=== PATIENT | male | born 1980 | race American Indian/Alaskan Native ===

== ENCOUNTER 2019-12-04 18:53 | Emergency (ER) | payer SELFPAY ==
--- NOTE | 2019-12-04 19:22 | Emergency Department Report ---
ED General Adult HPI - General Chief complaint: Head Injury Stated complaint: AMS Time Seen by Provider: 12/04/19 19:13 Source: patient, EMS Mode of arrival: Stretcher Limitations: Altered Mental Status - History of Present Illness Initial comments: The patient presents to the emergency department via EMS status post a ground- level fall. Patient states that he slipped on his patio due to the type of shoes he is wearing. The patient does admit to being unconscious for unknown period of time. The patient is able to answer questions pertaining to where he is located, the day of the week. The date, and the current president. Patient denies a headache or neck pain. -: Sudden Severity scale (0 -10): 0 Consistency: now resolved Improves with: none Worsens with: none Associated Symptoms: denies other symptoms Treatments Prior to Arrival: none - Related Data Allergies Allergy/AdvReac Type Severity Reaction Status Date / Time No Known Allergies Allergy Unverified 12/04/19 19:07 ED Review of Systems ROS: Stated complaint: AMS Other details as noted in HPI Comment: All other systems reviewed and negative Constitutional: denies: chills, fever Eyes: denies: eye pain, eye discharge, vision change ENT: denies: ear pain, throat pain Respiratory: denies: cough, shortness of breath, wheezing Cardiovascular: denies: chest pain, palpitations Endocrine: no symptoms reported Gastrointestinal: denies: abdominal pain, nausea, diarrhea Genitourinary: denies: urgency, dysuria Musculoskeletal: denies: back pain, joint swelling, arthralgia Skin: denies: rash, lesions Neurological: denies: headache, weakness, paresthesias Psychiatric: denies: anxiety, depression Hematological/Lymphatic: denies: easy bleeding, easy bruising ED Past Medical Hx - Past Medical History Previous Medical History?: No ED Physical Exam - General Limitations: Altered Mental Status General appearance: alert, in no apparent distress - Head Head exam: Present: atraumatic, normocephalic - Eye Eye exam: Present: normal appearance, PERRL, EOMI - ENT ENT exam: Present: mucous membranes moist - Neck Neck exam: Present: normal inspection - Respiratory Respiratory exam: Present: normal lung sounds bilaterally. Absent: respiratory distress - Cardiovascular Cardiovascular Exam: Present: regular rate, normal rhythm. Absent: systolic murmur, diastolic murmur, rubs, gallop - GI/Abdominal GI/Abdominal exam: Present: soft, normal bowel sounds. Absent: distended, tenderness - Rectal Rectal exam: Present: deferred - Extremities Exam Extremities exam: Present: normal inspection - Back Exam Back exam: Present: normal inspection - Neurological Exam Neurological exam: Present: alert, oriented X3, CN II-XII intact. Absent: motor sensory deficit - Psychiatric Psychiatric exam: Present: normal affect, normal mood - Skin Skin exam: Present: warm, dry, intact, normal color. Absent: rash ED Medical Decision Making - Medical Decision Making The patient endorses having an unknown time of loss of consciousness due to him falling hitting his head. It was discussed with the patient that I would like to get a CT of his head and cervical spine for evaluation of further injury such as a cervical fracture or intracranial bleed. Patient states he was not interested in getting any imaging and would like to go home. I discussed with him in detail that a cervical fracture can lead to permanent paralysis or as well as a bleed of the intracranial aspect could lead to permanent disability and . The patient states he understood this and said he had no interest in getting any test done and would like to go home. The patient did sign AGAINST MEDICAL ADVICE paperwork. Critical care attestation.: If time is entered above; I have spent that time in minutes in the direct care of this critically ill patient, excluding procedure time. ED Disposition Clinical Impression: Closed head injury Disposition: [id number]-07 LEFT AGAINST MED ADVICE Is pt being admited?: No Does the pt Need Aspirin: No Condition: Stable Instructions: Minor Head Injury (ED) Additional Instructions: return if worse As discussed in detail there is concerned that she possibly can have a intracranial head injury due to you falling and hitting her head and having a unknown time of loss of consciousness. Explained to you in detail that there could be concern for intracranial bleed which you state that you understand but she still want to go home. I discussed with you that this can lead to permanent injury or and you stated that she would take her chances. Referrals: [facility] [Provider Group] - 3-5 Days [facility] [Provider Group] - 3-5 Days Forms: AMA Form Time of Disposition: 19:20
== END 2019-12-04 19:26 | disposition left against medical advice (07) ==
LOC: ED 18:53
DX: R41.82 Altered mental status, unspecified (principal); Z53.21 Procedure and treatment not carried out due to patient leaving prior to being seen by health care provider

== ENCOUNTER 2019-12-13 14:39 | Emergency (ER) | payer SELFPAY ==
[2019-12-13 14:56] VITALS: BP 157/84
[2019-12-13 15:35] LABS: Hemoglobin 14.6 gm/dl (11.8-15.2); Mean Corpuscular HGB Conc 33 % (32-34); Mean Corpuscular Volume 92 fl (84-94); Platelet Count 219 K/mm3 (140-440); Red Blood Count 4.77 M/mm3 (3.65-5.03); Red Cell Distribution Width 15.3 % (13.2-15.2)
[2019-12-13 15:55] LABS: BUN/Creatinine Ratio 7; Blood Urea Nitrogen 8 mg/dL (9-20); Calcium 9.1 mg/dL (8.4-10.2); Hemolysis Index 19
--- NOTE | 2019-12-13 16:09 | Cat Scan Report ---
CT head/brain wo con INDICATION / CLINICAL INFORMATION: 38 years Male; head injury seizure. TECHNIQUE: Routine CT head without contrast. All CT scans at this location are performed using CT dos e reduction for ALARA by means of automated exposure control. COMPARISON: None. FINDINGS: BRAIN / INTRACRANIAL CONTENTS: Decreased attenuation seen peripherally in the left parietal lobe whic h could represent late subacute to chronic infarct. This finding could represent a seizure focus. Otherwise, no acute hemorrhage, mass effect, midline shift, hydrocephalus, or acute, large territori al infarct. No chronic infarct or atrophy appreciated. No significant white matter abnormality. CRANIOCERVICAL JUNCTION: No significant abnormality. ORBITS: No significant abnormality of visualized orbits. SINUSES / MASTOIDS: No significant abnormality in the visualized paranasal sinuses or mastoid air tad ls. ADDITIONAL FINDINGS: None. IMPRESSION: 1. 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 Follow-up with diffusion imaging by MRI, as clinically warranted. No signs of hemorrhagic transformation. Signer Name: Jim Bai MD, III Signed: 12/13/2019 4:04 PM Workstation Name: [id number]
--- NOTE | 2019-12-13 16:44 | Emergency Department Report ---
ED Seizure HPI - General Chief Complaint: Seizure Stated Complaint: SEIZURE Time Seen by Provider: 12/13/19 15:06 Source: patient, EMS, old records reviewed Mode of arrival: Stretcher Limitations: No Limitations - History of Present Illness Initial Comments: Chief complaint: Seizure HPI: This is a 38-year-old male with history of marijuana and tobacco dependence who presents with seizure. Witnessed seizure. No previous history of seizure. He did be biting his tongue. On December 03 he was recently evaluated in this emergency department for ground-level fall. He slipped on his patio. He was unconscious. He struck his head on concrete. At that time he refused to have CT head and spine imaging. He left AGAINST MEDICAL ADVICE. Patient still has small bump on the right scalp. Otherwise he does not understand he does not remember being transported by EMS. 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 He smokes tobacco and uses marijuana daily. He drinks alcohol on a weekly basis. MD Complaint: seizure -: Sudden, This afternoon Description of Episode: loss of consciousness Witnessed:: Yes Trauma: No Seizure History: none, other Possible Precipitating Event: head injury (9 days ago) Associated Symptoms: denies other symptoms - Related Data Allergies Allergy/AdvReac Type Severity Reaction Status Date / Time No Known Allergies Allergy Unverified 12/04/19 19:07 ED Review of Systems ROS: Stated complaint: SEIZURE Other details as noted in HPI Comment: All other systems reviewed and negative Constitutional: denies: fever, malaise Respiratory: denies: cough Cardiovascular: denies: chest pain Gastrointestinal: denies: abdominal pain ED Past Medical Hx - Past Medical History Previous Medical History?: Yes Hx Seizures: Yes - Social History Smoking Status: Unknown if ever smoked ED Physical Exam - General Limitations: No Limitations General appearance: alert, in no apparent distress, other (Ambulatory without difficulty) - Head Head exam: Present: atraumatic, normocephalic, other (No hematoma or laceration of the scalp) - Eye Eye exam: Present: normal appearance - ENT ENT exam: Present: mucous membranes moist - Neck Neck exam: Present: normal inspection - Respiratory Respiratory exam: Present: normal lung sounds bilaterally. Absent: respiratory distress - Cardiovascular Cardiovascular Exam: Present: regular rate, normal rhythm, normal heart sounds. Absent: systolic murmur, diastolic murmur, rubs, gallop - GI/Abdominal GI/Abdominal exam: Present: soft, normal bowel sounds. Absent: distended, tenderness, guarding - Rectal Rectal exam: Present: deferred - Extremities Exam Extremities exam: Present: normal inspection - Neurological Exam Neurological exam: Present: alert, oriented X3 - Psychiatric Psychiatric exam: Present: normal affect, normal mood - Skin Skin exam: Present: warm, dry, intact, normal color. Absent: rash ED Course Vital Signs 12/13/19 14:50 Temperature 98.2 F Pulse Rate 115 H Respiratory 16 Rate Blood Pressure 157/84 O2 Sat by Pulse 97 Oximetry ED Medical Decision Making - Lab Data Result diagrams: 12/13/19 15:18 12/13/19 15:18 Laboratory Results - last 24 hr 12/13/19 12/13/19 12/13/19 15:18 15:18 15:45 WBC 5.7 RBC 4.77 Hgb 14.6 Hct 44.0 MCV 92 MCH 31 MCHC 33 RDW 15.3 H Plt Count 219 Sodium 137 Potassium 3.6 Chloride 90.5 L Carbon Dioxide 13 L Anion Gap 37 BUN 8 L Creatinine 1.1 Estimated GFR > 60 BUN/Creatinine Ratio 7 Glucose 129 H POC Glucose 123 H Calcium 9.1 - Radiology Data Radiology results: report reviewed CT head: Subacute to chronic infarct in the left MCA territory, decreased attenuation in the left parietal lobe. - Medical Decision Making 1. Seizure: Patient did have head trauma recently. With abnormal CT scan: Previous CVA or recent CVA is a possibility. Unfortunately Mr. Carmona eloped from the emergency department without further treatment after receiving the CT scan of the head. 2. Patient had anion gap acid metabolic acidosis. Possibly due to lactic acidosis related to seizure versus alcoholic ketoacidosis Critical care attestation.: If time is entered above; I have spent that time in minutes in the direct care of this critically ill patient, excluding procedure time. ED Disposition Clinical Impression: Seizure, CVA (cerebral vascular accident) Disposition: ELOPED Is pt being admited?: No Does the pt Need Aspirin: No Condition: Stable
== END 2019-12-13 16:57 | disposition left against medical advice (07) ==
LOC: ED 14:39
DX: R56.9 Unspecified convulsions (principal); I63.89 Other cerebral infarction
CPT/HCPCS: 36415; 70450; 80048; 82962; 85027

== ENCOUNTER 2020-02-11 03:56 | Observation (INO) | payer SELFPAY ==
[2020-02-11] MEDS ORDERED: THIAMINE 100 MG, FOLIC ACID 1 MG, MULTIPLE VITAMIN INJ, ADULT 10 ML in SODIUM CHLORIDE ... IV ONE (04:02)
[2020-02-11] MEDS ORDERED: MAGNESIUM SULFATE 2 GM/50 ML BAG IV ONE (04:02)
[2020-02-11] MEDS ORDERED: LORazepam 2 MG/ML VIAL IV PRN ×3 (04:03)
[2020-02-11 04:40] LABS: Hematocrit 47.7 % (35.5-45.6); Hemoglobin 15.2 gm/dl (11.8-15.2); Mean Corpuscular HGB Conc 32 % (32-34); Mean Corpuscular Volume 96 fl (84-94); Platelet Count 221 K/mm3 (140-440); Red Blood Count 4.97 M/mm3 (3.65-5.03); Red Cell Distribution Width 14.8 % (13.2-15.2)
[2020-02-11 04:58] LABS: Creatine Kinase MB 3.7 ng/mL (0.0-4.0)
[2020-02-11 05:00] LABS: Alanine Aminotransferase 85 units/L (7-56); Albumin 4.4 g/dL (3.9-5); BUN/Creatinine Ratio 10; Blood Urea Nitrogen 12 mg/dL (9-20); Calcium 9.4 mg/dL (8.4-10.2); Hemolysis Index 22
[2020-02-11 06:33] LABS: Basophils % (Manual) 0 % (0.0-1.8); Monocytes % (Manual) 6.1 % (0.0-7.3); Total Cells Counted 98
[2020-02-11 06:34] LABS: Eosinophils % (Manual) 0 % (0.0-4.3)
[2020-02-11 06:35] LABS: Platelet Estimate Consistent w Auto
[2020-02-11] MEDS ORDERED: POTASSIUM CHLORIDE ER 20 MEQ TAB PO ONE (06:43)
--- NOTE | 2020-02-11 06:48 | Emergency Department Report ---
HPI - General Chief Complaint: Seizure Time Seen by Provider: 02/11/20 06:27 - HPI HPI: This is a 39-year-old -[place] male who presents to the emergency department with the suspicion of alcohol withdrawal seizures. The patient had 2 witnessed seizures at home and 2 witnessed with EMS. Report is that the patient has a history of alcohol withdrawal seizures but the patient denies this. He also denies any heavy alcohol use. However the patient says he does not remember any of the events prior to arrival here. Patient appears to have bit h is tongue. Patient denies any past medical history. He denies any illicit drug use. He is a tobacco smoker. This patient was seen here in November of this year after a slip and fall with some head trauma but he had refused CT imaging and left AMA. The patient was seen here in December of this year after having some witnessed seizures and once again the patient left AMA from the emergency department. ED Past Medical Hx - Past Medical History Previous Medical History?: Yes Hx Seizures: Yes (with withdrawls) - Surgical History Past Surgical History?: No Additional Surgical History: Unable to obtain - Social History Smoking Status: Unknown if ever smoked - Medications Home Medications: Home Medications Medication Instructions Recorded Confirmed Last Taken Type No Known Home Medications [No 02/11/20 02/11/20 Unknown History Reported Home Medications] ED Review of Systems ROS: Stated complaint: SEIZURES/ALLERGIC REACTION Other details as noted in HPI Comment: All other systems reviewed and negative Constitutional: denies: chills, fever Eyes: denies: eye pain, vision change Respiratory: denies: cough, shortness of breath Cardiovascular: denies: chest pain, palpitations Gastrointestinal: denies: abdominal pain, vomiting Musculoskeletal: denies: back pain, arthralgia Skin: denies: rash, lesions Neurological: headache, other (seizures) Physical Exam - Physical Exam Vital Signs: Vital Signs 02/11/20 02/11/20 02/11/20 04:16 04:30 05:00 Temperature Pulse Rate 120 H 107 H Respiratory 21 18 Rate Blood Pressure 159/103 150/91 127/54 Blood Pressure [Left] O2 Sat by Pulse 96 95 Oximetry 02/11/20 02/11/20 05:30 06:00 Temperature 97.7 F Pulse Rate 102 H 102 H Respiratory 22 19 Rate Blood Pressure 129/97 Blood Pressure 150/91 [Left] O2 Sat by Pulse 95 91 Oximetry Physical Exam: GENERAL: The patient is well-developed well-nourished. HENT: Normocephalic. Atraumatic. Patient has moist mucous membranes. EYES: Extraocular motions are intact. Pupils equal reactive to light bilaterally. NECK: Supple. Trachea is midline. CHEST/LUNGS: Clear to auscultation. There is no respiratory distress noted. HEART/CARDIOVASCULAR: Regular. There is mild tachycardia. There is no murmur. ABDOMEN: Abdomen is soft, nontender. Patient has normal bowel sounds. There is no abdominal distention. SKIN: Skin is warm and dry. NEURO: The patient is sleepy but is arousable. Once awake he is oriented to person, place, time. Follows commands. Cranial nerves II through XII grossly intact. MUSCULOSKELETAL: There is no tenderness or deformity. There is no limitation range of motion. There is no evidence of acute injury. ED Course Vital Signs 02/11/20 02/11/20 02/11/20 04:16 04:30 05:00 Temperature Pulse Rate 120 H 107 H Respiratory 21 18 Rate Blood Pressure 159/103 150/91 127/54 Blood Pressure [Left] O2 Sat by Pulse 96 95 Oximetry 02/11/20 02/11/20 05:30 06:00 Temperature 97.7 F Pulse Rate 102 H 102 H Respiratory 22 19 Rate Blood Pressure 129/97 Blood Pressure 150/91 [Left] O2 Sat by Pulse 95 91 Oximetry - Reevaluation(s) Reevaluation #1: 02/11/20 13:04 Lab Results 02/11/20 02/11/20 02/11/20 Range/Units 04:06 04:06 04:06 WBC 14.2 H (4.5-11.0) K/mm3 RBC 4.97 (3.65-5.03) M/mm3 Hgb 15.2 (11.8-15.2) gm/dl Hct 47.7 H (35.5-45.6) % MCV 96 H (84-94) fl MCH 31 (28-32) pg MCHC 32 (32-34) % RDW 14.8 (13.2-15.2) % Plt Count 221 (140-440) K/mm3 Lymph % (Auto) Price Analyst Lymph # Price Analyst Add Manual Diff Complete Total Counted 98 Seg Neuts % (Manual) 33.7 L (40.0-70.0) % Band Neutrophils % 0 % Lymphocytes % (Manual) 58.2 H (13.4-35.0) % Reactive Lymphs % (Man) 0 % Monocytes % (Manual) 6.1 (0.0-7.3) % Eosinophils % (Manual) 0 (0.0-4.3) % Basophils % (Manual) 0 (0.0-1.8) % Metamyelocytes % 2.0 % Myelocytes % 0 % Promyelocytes % 0 % Blast Cells % 0 % Nucleated RBC % Not Reportable Seg Neutrophils # Man 4.8 (1.8-7.7) K/mm3 Band Neutrophils # 0.0 K/mm3 Lymphocytes # (Manual) 8.3 H (1.2-5.4) K/mm3 Abs React Lymphs (Man) 0.0 K/mm3 Monocytes # (Manual) 0.9 H (0.0-0.8) K/mm3 Eosinophils # (Manual) 0.0 (0.0-0.4) K/mm3 Basophils # (Manual) 0.0 (0.0-0.1) K/mm3 Metamyelocytes # 0.3 K/mm3 Myelocytes # 0.0 K/mm3 Promyelocytes # 0.0 K/mm3 Blast Cells # 0.0 K/mm3 WBC Morphology Not Reportable Hypersegmented Neuts Not Reportable Hyposegmented Neuts Not Reportable Hypogranular Neuts Not Reportable Smudge Cells Not Reportable Toxic Granulation Not Reportable Toxic Vacuolation Not Reportable Dohle Bodies Not Reportable Pelger-Huet Anomaly Not Reportable Tien Rods Not Reportable Platelet Estimate Consistent w auto Clumped Platelets Not Reportable Plt Clumps, EDTA Not Reportable Large Platelets Not Reportable Giant Platelets Not Reportable Platelet Satelliting Not Reportable Plt Morphology Comment Not Reportable RBC Morphology Not Reportable Dimorphic RBCs Not Reportable Polychromasia Not Reportable Hypochromasia Not Reportable Poikilocytosis Not Reportable Anisocytosis Not Reportable Microcytosis Not Reportable Macrocytosis Not Reportable Spherocytes Not Reportable Pappenheimer Bodies Not Reportable Sickle Cells Not Reportable Target Cells Not Reportable Tear Drop Cells Not Reportable Ovalocytes Not Reportable Helmet Cells Not Reportable Draper-Galva Bodies Not Reportable [place] Rings Not Reportable Nick Cells Not Reportable Bite Cells Not Reportable Crenated Cell Not Reportable Elliptocytes Not Reportable Acanthocytes (Spur) Not Reportable Rouleaux Not Reportable Hemoglobin C Crystals Not Reportable Schistocytes Not Reportable Malaria parasites Not Reportable Santhosh Bodies Not Reportable Hem Pathologist Commnt No Sodium 136 L (137-145) mmol/L Potassium 3.1 L (3.6-5.0) mmol/L Chloride 88.4 L (98-107) mmol/L Carbon Dioxide 6 L* (22-30) mmol/L Anion Gap 45 mmol/L BUN 12 (9-20) mg/dL Creatinine 1.2 (0.8-1.3) mg/dL Estimated GFR > 60 ml/min BUN/Creatinine Ratio 10 % Glucose 246 H (75-100) mg/dL Calcium 9.4 (8.4-10.2) mg/dL Magnesium 1.40 L (1.7-2.3) mg/dL Total Bilirubin 0.50 (0.1-1.2) mg/dL AST 66 H (5-40) units/L ALT 85 H (7-56) units/L Alkaline Phosphatase 94 (35-129) units/L Total Creatine Kinase 403 H (55-170) units/L CK-MB (CK-2) 3.7 (0.0-4.0) ng/mL CK-MB (CK-2) Rel Index 0.9 (0-4) Troponin T < 0.010 (0.00-0.029) ng/mL Total Protein 7.8 (6.3-8.2) g/dL Albumin 4.4 (3.9-5) g/dL Albumin/Globulin Ratio 1.3 % Plasma/Serum Alcohol (0-0.07) % 02/11/20 Range/Units 06:52 WBC (4.5-11.0) K/mm3 RBC (3.65-5.03) M/mm3 Hgb (11.8-15.2) gm/dl Hct (35.5-45.6) % MCV (84-94) fl MCH (28-32) pg MCHC (32-34) % RDW (13.2-15.2) % Plt Count (140-440) K/mm3 Lymph % (Auto) Lymph # Add Manual Diff Total Counted Seg Neuts % (Manual) (40.0-70.0) % Band Neutrophils % % Lymphocytes % (Manual) (13.4-35.0) % Reactive Lymphs % (Man) % Monocytes % (Manual) (0.0-7.3) % Eosinophils % (Manual) (0.0-4.3) % Basophils % (Manual) (0.0-1.8) % Metamyelocytes % % Myelocytes % % Promyelocytes % % Blast Cells % % Nucleated RBC % Seg Neutrophils # Man (1.8-7.7) K/mm3 Band Neutrophils # K/mm3 Lymphocytes # (Manual) (1.2-5.4) K/mm3 Abs React Lymphs (Man) K/mm3 Monocytes # (Manual) (0.0-0.8) K/mm3 Eosinophils # (Manual) (0.0-0.4) K/mm3 Basophils # (Manual) (0.0-0.1) K/mm3 Metamyelocytes # K/mm3 Myelocytes # K/mm3 Promyelocytes # K/mm3 Blast Cells # K/mm3 WBC Morphology Hypersegmented Neuts Hyposegmented Neuts Hypogranular Neuts Smudge Cells Toxic Granulation Toxic Vacuolation Dohle Bodies Pelger-Huet Anomaly Tien Rods Platelet Estimate Clumped Platelets Plt Clumps, EDTA Large Platelets Giant Platelets Platelet Satelliting Plt Morphology Comment RBC Morphology Dimorphic RBCs Polychromasia Hypochromasia Poikilocytosis Anisocytosis Microcytosis Macrocytosis Spherocytes Pappenheimer Bodies Sickle Cells Target Cells Tear Drop Cells Ovalocytes Helmet Cells Draper-Galva Bodies [place] Rings Chloride Cells Bite Cells Crenated Cell Elliptocytes Acanthocytes (Spur) Rouleaux Hemoglobin C Crystals Schistocytes Malaria parasites Santhosh Bodies Hem Pathologist Commnt Sodium (137-145) mmol/L Potassium (3.6-5.0) mmol/L Chloride (98-107) mmol/L Carbon Dioxide (22-30) mmol/L Anion Gap mmol/L BUN (9-20) mg/dL Creatinine (0.8-1.3) mg/dL Estimated GFR ml/min BUN/Creatinine Ratio % Glucose (75-100) mg/dL Calcium (8.4-10.2) mg/dL Magnesium (1.7-2.3) mg/dL Total Bilirubin (0.1-1.2) mg/dL AST (5-40) units/L ALT (7-56) units/L Alkaline Phosphatase (35-129) units/L Total Creatine Kinase (55-170) units/L CK-MB (CK-2) (0.0-4.0) ng/mL CK-MB (CK-2) Rel Index (0-4) Troponin T (0.00-0.029) ng/mL Total Protein (6.3-8.2) g/dL Albumin (3.9-5) g/dL Albumin/Globulin Ratio % Plasma/Serum Alcohol < 0.01 (0-0.07) % ED Medical Decision Making - Lab Data Result diagrams: 02/11/20 04:06 02/11/20 04:06 - Radiology Data Radiology results: report reviewed, image reviewed interpreted by me: Chest x-ray does not show any acute process. There are no pleural effusions, obvious pneumonia and there is no pneumothorax. No significant cardiomegaly. NONENHANCED CT SCAN OF THE HEAD: INDICATION / CLINICAL INFORMATION: 39 years Male; Seizures. TECHNIQUE: Routine CT head without contrast. All CT scans at this location are performed using CT dose reduction for ALARA by means of automated exposure control. COMPARISON: CT scan of the head from 12/13/2019 JOLLY TINOCO: BRAIN / INTRACRANIAL CONTENTS: No acute hemorrhage, mass effect, midline shift, hydrocephalus, or acute, large territorial infarct. Is seen in the last CT scan, chronic appearing ischemic changes are seen in the left posterior temporal lobe extending into the border zone and also along the left superior temporal gyrus and left posterior insula. Given the history of seizures, no space taking lesion is seen in the temporal and frontal lobes. Hippocampi appear normal.. No significant white matter abnormality. CRANIOCERVICAL JUNCTION: No significant abnormality. ORBITS: No significant abnormality of visualized orbits. SINUSES / MASTOIDS: No significant abnormality of the visualized parana eliseo sinuses or mastoid air cells. ADDITIONAL FINDINGS: None. IMPRESSION: No acute focal parenchymal lesion in the brain - Medical Decision Making This patient presented to the emergency department after 2 witnessed seizures at home and to witnessed seizures with EMS. Since being in the emergency department the patient has remained awake and alert without any further seizure- like activity thus far. CT scan of the head without contrast does not show any bleed, shift, mass, ischemia, or any other acute process. Patient's labs shows a leukocytosis of 14,000, slightly elevated LFTs, hypokalemia, hypomagnesemia, a bicarb of 6, and a high anion gap metabolic acidosis. The patient was placed on the alcohol withdrawal protocol. He has been given a gram of Keppra for seizure prophylaxis. Patient has received IV fluid resuscitation including banana bag. This is the patient's second visit in 2 months for seizure-like activity. Given the multiple and/or recurrent seizures today, as well as the bicarb level of 6, the patient will be admitted to the hospital for further evaluation and treatment and was accepted for admission by the hospitalist, Dr Savage jain. Critical Care Time: No Critical care attestation.: If time is entered above; I have spent that time in minutes in the direct care of this critically ill patient, excluding procedure time. ED Disposition Clinical Impression: Recurrent seizures, High anion gap metabolic acidosis, Hypomagnesemia, H ypokalemia Alcohol withdrawal seizure Qualifiers: Complication of substance-induced condition: with unspecified complication Qualified Code(s): F10.239 - Alcohol dependence with withdrawal, unspecified; R56.9 - Unspecified convulsions Disposition: OP ADMIT IP TO THIS HOSP Is pt being admited?: Yes Condition: Serious Time of Disposition: 09:18
--- NOTE | 2020-02-11 09:08 | Cat Scan Report ---
NONENHANCED CT SCAN OF THE HEAD: INDICATION / CLINICAL INFORMATION: 39 years Male; Seizures. TECHNIQUE: Routine CT head without contrast. All CT scans at this location are performed using CT dos e reduction for ALARA by means of automated exposure control. COMPARISON: CT scan of the head from 12/13/2019 FINDINGS: BRAIN / INTRACRANIAL CONTENTS: No acute hemorrhage, mass effect, midline shift, hydrocephalus, or acu te, large territorial infarct. Is seen in the last CT scan, chronic appearing ischemic changes are se en in the left posterior temporal lobe extending into the border zone and also along the left superio r temporal gyrus and left posterior insula. Given the history of seizures, no space taking lesion is seen in the temporal and frontal lobes. Francis ocampi appear normal.. No significant white matter abnormality. CRANIOCERVICAL JUNCTION: No significant abnormality. ORBITS: No significant abnormality of visualized orbits. SINUSES / MASTOIDS: No significant abnormality of the visualized paranasal sinuses or mastoid air tad ls. ADDITIONAL FINDINGS: None. IMPRESSION: No acute focal parenchymal lesion in the brain CT findings remain unchanged since 12/13/2019. Signer Name: Lori Last MD Signed: 02/11/2020 9:04 AM Workstation Name: [id number]
[2020-02-11] MEDS ORDERED: levETIRAcetam 1000 MG/NS 0.75% 1,000 MG/100 ML BAG IV ONE (09:19)
--- NOTE | 2020-02-11 10:15 | History and Physical Report ---
History of Present Illness Date of examination: 02/11/20 Date of admission: 02/11/20 Chief complaint: Seizure disorder History of present illness: This is a 39-year-old -[place] male who presents to the emergency department with the suspicion of alcohol withdrawal seizures. Per ED record The patient had 2 witnessed seizures at home and 2 witnessed with EMS. Patient has a history of alcohol withdrawal seizures but the patient denies this. He also denies any heavy alcohol use, illicit drugs but admits tobacco use. Patient appears to have bit his tongue. Patient denies any past medical history. Also per ED record-This patient was seen here in November of this year after a slip and fall with some head trauma but he had refused CT imaging and left AMA. The patient was seen here in December of this year after having some witnessed seizures and once again the patient left AMA from the emergency department. ED Work up shows WBC 14.2, Hemoglobin 15.2, Platelet 221, Potassium 3.1, Magnesium 1.4, C02 6 Serum glucose 246, CK 403. Chest x-ray-no acute finding CT of the head-acute finding Past History Past Medical History: seizures (alcohol dependency) Social history: alcohol abuse Family history: no significant family history Medications and Allergies Allergies Allergy/AdvReac Type Severity Reaction Status Date / Time No Known Allergies Allergy Verified 02/11/20 04:04 Home Medications Medication Instructions Recorded Confirmed Last Taken Type No Known Home Medications [No 02/11/20 02/11/20 Unknown History Reported Home Medications] Active Meds: Active Medications Lorazepam (Ativan) 2 mg IV Q1HR PRN PRN Reason: CIWA-Ar 8-15 Lorazepam (Ativan) 4 mg IV Q1HR PRN PRN Reason: CIWA-Ar 16-25 Lorazepam (Ativan) 4 mg IV Q15MIN PRN PRN Reason: CIWA-Ar >25 Review of Systems Constitutional: fatigue Integumentary: sores (lips) Psychiatric: anxiety, depression Exam - Constitutional Vitals: Temp Pulse Resp BP Pulse Ox 98.3 F 93 H 12 134/85 100 02/11/20 07:15 02/11/20 09:15 02/11/20 09:15 02/11/20 09:15 02/11/20 09:15 General appearance: Present: no acute distress, well-nourished - EENT Eyes: Present: PERRL ENT: hearing intact, clear oral mucosa - Neck Neck: Present: supple, normal ROM - Respiratory Respiratory effort: normal Respiratory: bilateral: CTA - Cardiovascular Heart rate: 86 Heart Sounds: Present: S1 & S2. Absent: rub, click - Extremities Extremities: pulses symmetrical, No edema Peripheral Pulses: within normal limits - Abdominal General gastrointestinal: Present: soft, non-tender, non-distended, normal bowel sounds Male genitourinary: Present: normal - Integumentary Integumentary: Present: clear, warm, dry - Musculoskeletal Musculoskeletal: gait normal, strength equal bilaterally - Psychiatric Psychiatric: appropriate mood/affect, intact judgment & insight, cooperative - Neurologic Neurologic: CNII-XII intact, moves all extremities HEART Score - HEART Score Troponin: Troponin T < 0.010 ng/mL (0.00-0.029) 02/11/20 04:06 Results - Labs CBC & Chem 7: 02/11/20 04:06 02/11/20 04:06 Labs: Abnormal lab results 02/11/20 02/11/20 02/11/20 Range/Units 04:06 04:06 04:06 WBC 14.2 H (4.5-11.0) K/mm3 Hct 47.7 H (35.5-45.6) % MCV 96 H (84-94) fl Seg Neuts % (Manual) 33.7 L (40.0-70.0) % Lymphocytes % (Manual) 58.2 H (13.4-35.0) % Lymphocytes # (Manual) 8.3 H (1.2-5.4) K/mm3 Monocytes # (Manual) 0.9 H (0.0-0.8) K/mm3 Sodium 136 L (137-145) mmol/L Potassium 3.1 L (3.6-5.0) mmol/L Chloride 88.4 L (98-107) mmol/L Carbon Dioxide 6 L* (22-30) mmol/L Glucose 246 H (75-100) mg/dL Magnesium 1.40 L (1.7-2.3) mg/dL AST 66 H (5-40) units/L ALT 85 H (7-56) units/L Total Creatine Kinase 403 H (55-170) units/L Assessment and Plan - Patient Problems (1) Alcohol withdrawal seizure Current Visit: Yes Status: Acute Qualifiers: Complication of substance-induced condition: with unspecified complication Qualified Code(s): F10.239 - Alcohol dependence with withdrawal, unspecified; R56.9 - Unspecified convulsions Plan to address problem: Safety and fall precaution PRN ativan Seizure precaution Continue CIWA protocol continue Keppra CT of the head-negative for acute finding (2) High anion gap metabolic acidosis Current Visit: Yes Status: Acute Plan to address problem: Continue IV hydration Bicarb drip at 100cc hr Monitor bicab level (3) Hypomagnesemia Current Visit: Yes Status: Acute Plan to address problem: Replete magnesium Replete as needed (4) Hypokalemia Current Visit: Yes Status: Acute Plan to address problem: Replace potassium Am lab-monitor electrolytes (5) Recurrent seizures Current Visit: Yes Status: Acute Plan to address problem: Re-occuring seizure like 2/2 to alcohol use Seizure precaution Discussed alcohol use cessation with patient (6) Leucocytosis Current Visit: Yes Status: Acute Plan to address problem: ? cause-aspiration PNA/sepsis Chest x-ray done-negative for acute UA done-no acute finding Will start empiric antibiotic with Levaquin Patient seen at bedside in ED-patient nurse present. Reviewed lab, mar, and v/s. On assessment, patient has tear to his lips possibly from seizure activities He denied heavy alcohol use and illicit drug. He also denies headache, shortness of breath and n/v. he has electrolyte abnormalities-replaced has metabolic acidosis-started on bicarb drip. He is in room, calm and co- operative with care
[2020-02-11 10:19] LABS: Bilirubin,Urine NEG (Negative); Blood,Urine MOD (Negative); Color,Urine Straw (Yellow); Protein,Urine <15 mg/dL mg/dL (Negative); Urobilinogen,Urine < 2.0 mg/dL (<2.0); WBC,Urine < 1.0 /HPF (0.0-6.0)
[2020-02-11] MEDS: POTASSIUM CHLORIDE 10 MEQ 10 MEQ/100 ML BAG IV SCH ×4 (10:32→14:43)
--- NOTE | 2020-02-11 10:58 | XRay Report ---
CHEST 1 VIEW INDICATION / CLINICAL INFORMATION: SOB POSS infilterate. COMPARISON: None available. FINDINGS: SUPPORT DEVICES: None. HEART / MEDIASTINUM: No significant abnormality. LUNGS / PLEURA: No significant pulmonary or pleural abnormality. No pneumothorax. ADDITIONAL FINDINGS: No significant additional findings. IMPRESSION: No acute cardiopulmonary abnormality. Signer Name: Reagan Scales MD Signed: 02/11/2020 10:54 AM Workstation Name: [id number]
[2020-02-11] MEDS ORDERED: MAGNESIUM SULFATE 4 GM/100 ML BAG IV ONE (11:00)
[2020-02-11] MEDS ORDERED: SODIUM BICARBONATE 150 MEQ in SODIUM CHLORIDE 0.9% 1000 ML 1,000 ML IV SCH (11:00)
[2020-02-11] MEDS ORDERED: SODIUM BICARBONATE 150 MEQ in WATER FOR INJECTION (PF) 1,000 ML IV SCH (11:00)
[2020-02-11 12:03] LABS: Amphetamine Screen,Urine PRESUMPTIVE NEGATIVE; Benzodiazepines Screen,Urine PRESUMPTIVE NEGATIVE; Cannabinoid Screen,Urine PRESUMPTIVE POSITIVE; Cocaine Screen,Urine PRESUMPTIVE NEGATIVE; Methadone Screen,Urine PRESUMPTIVE NEGATIVE; Opiate Screen,Urine PRESUMPTIVE NEGATIVE
[2020-02-11] MEDS ORDERED: POTASSIUM CHLORIDE 10 MEQ 10 MEQ/100 ML BAG IV ONE ×3 (12:17→14:43)
[2020-02-11 16:16] VITALS: BP 157/95
== END 2020-02-11 16:39 | disposition left against medical advice (07) ==
LOC: ED 03:56 → 3A 09:19
PROVIDERS: ADMIT Internal Medicine; ATTEND Internal Medicine
DX: F10.239 Alcohol dependence with withdrawal, unspecified (principal); G40.909 Epilepsy, unspecified, not intractable, without status epilepticus; E87.2 Acidosis; E83.42 Hypomagnesemia; E87.6 Hypokalemia; D72.829 Elevated white blood cell count, unspecified; Z79.899 Other long term (current) drug therapy
CPT/HCPCS: 36415; 70450; 71045; 80053; 80307; 81001; 82140; 82550; 82553; 83735; 84484; 85025; 96365; 96366; 96367; 96368; 96375; 99284; G0378; J1953; J1956; J3411; J3475; J3480; J7030; 80320; 85007; G0480

== ENCOUNTER 2020-03-07 04:51 | Emergency (ER) | payer SELFPAY ==
[2020-03-07] MEDS ORDERED: levETIRAcetam 1000 MG/NS 0.75% 1,000 MG/100 ML BAG IV ONE (05:02)
[2020-03-07] MEDS ORDERED: SODIUM CHLORIDE 0.9% 1000 ML 1,000 ML IV ONE (05:02)
[2020-03-07] MEDS ORDERED: diazePAM 10 MG/2 ML SYRINGE IV ONE (05:02)
--- NOTE | 2020-03-07 05:04 | Emergency Department Report ---
Chief Complaint: Seizure Stated Complaint: SEIZURE Time Seen by Provider: 03/07/20 05:04 - HPI History of Present Illness: Patient is a 39-year-old male that presents to the ER for seizure. Patient only seizure in the past secondary to detoxing and withdrawal seizures. Patient is currently detoxing. History per EMS. Patient is altered at this time secondary to just having a seizure. Patient had a witnessed seizure by his family and another 1 by EMS. Patient was given Ativan by EMS. - ROS Review of Systems: Unable to assess due to the patient's altered mental status. - Exam Vital Signs: Vital Signs 03/07/20 05:00 Pulse Rate 106 H Respiratory 17 Rate Blood Pressure 151/91 [Right] O2 Sat by Pulse 96 Oximetry Physical Exam: The patient appeared well nourished and normally developed. Vital signs as documented. Head exam is unremarkable. No scleral icterus or corneal arcus noted. Neck is supple. Lungs are clear to auscultation and percussion. Cardiac exam reveals Rhythm is regular. First and second heart sounds normal. No murmurs, rubs or gallops. Neuro exam altered but awake MSE screening note: Focused history and physical exam performed. Due to findings the following was ordered: Assessment and plan: Seizure activity, possible DTs Alcohol withdrawal Labs will be ordered, head CT EKG. Patient will be given Keppra and Valium. Patient placed on CIWA protocol ED Disposition for MSE Condition: Stable
[2020-03-07] MEDS ORDERED: LORazepam 2 MG/ML VIAL IV PRN ×3 (05:36)
[2020-03-07 06:05] LABS: Basophils # (Auto) 0.1 K/mm3 (0.0-0.1); Basophils % (Auto) 1.2 % (0.0-1.8); Eosinophils # (Auto) 0.1 K/mm3 (0.0-0.4); Eosinophils % (Auto) 1.4 % (0.0-4.3); Hematocrit 43.9 % (35.5-45.6); Hemoglobin 14.8 gm/dl (11.8-15.2); Lymphocytes # (Auto) 2.9 K/mm3 (1.2-5.4); Lymphocytes % (Auto) 37.8 % (13.4-35.0); Mean Corpuscular HGB Conc 34 % (32-34); Mean Corpuscular Volume 94 fl (84-94); Monocytes # (Auto) 0.6 K/mm3 (0.0-0.8); Monocytes % (Auto) 7.8 % (0.0-7.3); Platelet Count 193 K/mm3 (140-440); Red Blood Count 4.68 M/mm3 (3.65-5.03); Red Cell Distribution Width 14.4 % (13.2-15.2)
[2020-03-07] MEDS ORDERED: MAGNESIUM SULFATE 2 GM/50 ML BAG IV ONE (06:16)
[2020-03-07 06:17] LABS: Alanine Aminotransferase 54 units/L (7-56); Albumin 4.3 g/dL (3.9-5); BUN/Creatinine Ratio 12; Blood Urea Nitrogen 13 mg/dL (9-20); Calcium 9.6 mg/dL (8.4-10.2); Hemolysis Index 16
--- NOTE | 2020-03-07 06:17 | Emergency Department Report ---
ED General Adult HPI - General Chief complaint: Seizure Stated complaint: SEIZURE PUI?: No Time Seen by Provider: 03/07/20 05:04 Source: patient ( EMS documentation not available at time of chart dictation ), EMS, RN notes reviewed Mode of arrival: Stretcher Limitations: Altered Mental Status, Physical Limitation - History of Present Illness Initial comments: The patient was evaluated in the emergency department for symptoms described in the history of present illness. He/she was evaluated in the context of the global COVID-19 pandemic, which necessitated consideration that the patient might be at risk for infection with the virus that causes COVID-19. Institutional protocols and algorithms that pertain to the evaluation of patients at risk for COVID-19 are in a state of rapid change based on information released by regulatory bodies including the CDC and federal and state organizations. These policies and algorithms were followed during the patient's care in the emergency department. Please note that these policies, procedures and recommendations changed on a rapid basis. Patient is a 39-year-old gentleman. He is not known to myself previously. He has been admitted to this hospital in the past for presumed alcohol withdrawal seizure, and metabolic acidosis secondary to alcohol dependence and alcohol w ithdrawal seizure. In the past, he has left the inpatient [facility] AGAINST MEDICAL ADVICE. 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 Today, he presents to the ER with a complaint of seizure. Patient himself is postictal, laying in stretcher, endorses no complaints, and is somewhat of a poor historian. The patient indicated that he was not having physical pain and indicated that he was not homicidal suicidal. However, he went back to sleep, and would not answer further questions. The patient is sleepy but arousable, breathing spontaneously, moving 4 extremities and protecting his airway. He is not accompanied by friends or family at this time for additional information or collateral information. He makes no complaint of homicidality or suicidality. At this point in time, patient not able to describe the qualitative nature of his symptoms, exacerbating, relieving factors, or radiation factors. He initially went to CAT scan as per prior orders from the nocturnal physician, and was not cooperative with the CT scan. However, the patient is altered, and does not exhibit decision-making capacity, therefore, CT scan reattempted, obtained, negative for acute findings. There is no documentation or history of trauma. -: unknown - Related Data Previous Rx's Medication Instructions Recorded Last Taken Type Lactulose [Cephulac] 20 gm PO QDAY #500 ml 03/07/20 Unknown Rx Magnesium Oxide 400 mg PO QDAY #30 tablet 03/07/20 Unknown Rx Multivitamin with Folic Acid [Cvs 400 mcg PO QDAY #30 tablet 03/07/20 Unknown Rx One Daily Essential Tablet] Potassium Chloride 20 meq PO QDAY #30 packet 03/07/20 Unknown Rx chlordiazePOXIDE [Librium] 25 mg PO Q6H PRN #25 capsule 03/07/20 Unknown Rx levETIRAcetam [Keppra TAB] 500 mg PO BID #60 tablet 03/07/20 Unknown Rx Allergies Allergy/AdvReac Type Severity Reaction Status Date / Time No Known Allergies Allergy Verified 03/07/20 07:50 ED Review of Systems ROS: Stated complaint: SEIZURE Other details as noted in HPI Comment: Unobtainable due to pts medical conditions ED Past Medical Hx - Past Medical History Previous Medical History?: Yes Hx Seizures: Yes (with withdrawls) - Surgical History Past Surgical History?: No Additional Surgical History: Unable to obtain - Social History Smoking Status: Unknown if ever smoked - Medications Home Medications: Home Medications Medication Instructions Recorded Confirmed Last Taken Type Lactulose [Cephulac] 20 gm PO QDAY #500 ml 03/07/20 Unknown Rx Magnesium Oxide 400 mg PO QDAY #30 tablet 03/07/20 Unknown Rx Multivitamin with Folic Acid [Cvs 400 mcg PO QDAY #30 tablet 03/07/20 Unknown Rx One Daily Essential Tablet] Potassium Chloride 20 meq PO QDAY #30 packet 03/07/20 Unknown Rx chlordiazePOXIDE [Librium] 25 mg PO Q6H PRN #25 capsule 03/07/20 Unknown Rx levETIRAcetam [Keppra TAB] 500 mg PO BID #60 tablet 03/07/20 Unknown Rx ED Physical Exam - General Limitations: Altered Mental Status General appearance: lethargic - Head Head exam: Present: atraumatic, normocephalic - Eye Eye exam: Present: normal appearance, PERRL - ENT ENT exam: Present: normal exam, normal orophraynx, mucous membranes moist, normal external ear exam - Neck Neck exam: Present: normal inspection, full ROM. Absent: tenderness, meningismus - Respiratory Respiratory exam: Present: normal lung sounds bilaterally. Absent: respiratory distress, wheezes, rales, rhonchi, stridor - Cardiovascular Cardiovascular Exam: Present: normal rhythm, tachycardia, normal heart sounds. Absent: systolic murmur, diastolic murmur, rubs, gallop - GI/Abdominal GI/Abdominal exam: Present: soft. Absent: distended, tenderness, guarding, rebound, rigid, pulsatile mass - Rectal Rectal exam: Present: deferred - Extremities Exam Extremities exam: Present: normal inspection, full ROM, other (2+ pulses noted in the bilateral upper and lower extremities. There is no palpable cord. negative Homans sign. Muscular compartments are soft. The pelvis is stable.). Absent: pedal edema, calf tenderness - Back Exam Back exam: Present: normal inspection. Absent: tenderness, CVA tenderness (R), CVA tenderness (L), paraspinal tenderness, vertebral tenderness - Neurological Exam Neurological exam: Present: altered, other (The patient is sleepy but arousable. The patient is moving 4 extremities spontaneously. There is no obvious facial droop. Detailed neurologic examination not possible secondary to patient's altered mental status, postictal state) - Skin Skin exam: Present: warm, dry, intact, normal color. Absent: rash ED Course Vital Signs 03/07/20 03/07/20 03/07/20 05:00 05:45 06:00 Temperature 97.8 F Pulse Rate 106 H 103 H 102 H Respiratory 17 17 18 Rate Blood Pressure 140/78 147/97 Blood Pressure 151/91 [Right] O2 Sat by Pulse 96 94 94 Oximetry 03/07/20 03/07/20 03/07/20 06:15 07:15 08:15 Temperature Pulse Rate 105 H 102 H 100 H Respiratory 19 17 11 L Rate Blood Pressure 147/97 145/83 154/95 Blood Pressure [Right] O2 Sat by Pulse 100 96 96 Oximetry - Reevaluation(s) Reevaluation #1: 03/07/20 07:38 Differential diagnosis, including but not limited to: Seizure, breakthrough seizure, alcohol withdrawal seizure, electrolyte derangement, metabolic acidosis secondary to alcohol withdrawal seizure Assessment and plan: 39-year-old gentleman, protecting his airway at this time, moving 4 extremities, hemodynamically stable, prior hospitalizations and evaluations for breakthrough alcohol withdrawal seizure, with resultant metabolic acidosis, and electrolyte derangement. He is not intoxicated but postictal at this time. He received benzodiazepines in the field, and was given Valium and Keppra prior to my personal evaluation. We will replete his electrolytes, give IV fluids, repeat basic metabolic panel, and reassess the patient when he is more awake and able to participate in his exam and physical Reevaluation #2: 03/07/20 08:50 Patient pulled out his IV. Patient refusing further care. At this point in time, patient is alert and oriented x3, clinically sober, exhibits decision- making capacity, and is free from distracting injury. I have recommended further treatment, which he is refusing. Risks of leaving, including , disability, paralysis, permanent loss of quality of life are discussed with the patient, he is able to articulate these risks in his own words. He is also operating his cell phone with the use, and has already called a ride. This conversation is witnessed by nurse KRISTAN PALMER Patient understands that he may return to the emergency room right away if and when he changes his mind. 03/07/20 08:51 ED Medical Decision Making - Lab Data Result diagrams: 03/07/20 05:35 03/07/20 08:14 Vital Signs 03/07/20 03/07/20 03/07/20 05:00 05:45 06:00 Temperature 97.8 F Pulse Rate 106 H 103 H 102 H Respiratory 17 17 18 Rate Blood Pressure 140/78 147/97 Blood Pressure 151/91 [Right] O2 Sat by Pulse 96 94 94 Oximetry 03/07/20 03/07/20 06:15 07:15 Temperature Pulse Rate 105 H 102 H Respiratory 19 17 Rate Blood Pressure 147/97 145/83 Blood Pressure [Right] O2 Sat by Pulse 100 96 Oximetry Lab Results 03/07/20 03/07/20 03/07/20 Range/Units 05:35 05:35 05:35 WBC 7.7 (4.5-11.0) K/mm3 RBC 4.68 (3.65-5.03) M/mm3 Hgb 14.8 (11.8-15.2) gm/dl Hct 43.9 (35.5-45.6) % MCV 94 (84-94) fl MCH 32 (28-32) pg MCHC 34 (32-34) % RDW 14.4 (13.2-15.2) % Plt Count 193 (140-440) K/mm3 Lymph % (Auto) 37.8 H (13.4-35.0) % [place] % (Auto) 7.8 H (0.0-7.3) % Eos % (Auto) 1.4 (0.0-4.3) % Baso % (Auto) 1.2 (0.0-1.8) % Lymph # (Auto) 2.9 (1.2-5.4) K/mm3 [place] # (Auto) 0.6 (0.0-0.8) K/mm3 Eos # (Auto) 0.1 (0.0-0.4) K/mm3 Baso # (Auto) 0.1 (0.0-0.1) K/mm3 Seg Neutrophils % 51.8 (40.0-70.0) % Seg Neutrophils # 4.0 (1.8-7.7) K/mm3 Sodium 136 L (137-145) mmol/L Potassium 3.4 L (3.6-5.0) mmol/L Chloride 87.7 L (98-107) mmol/L Carbon Dioxide 15 L (22-30) mmol/L Anion Gap 37 mmol/L BUN 13 (9-20) mg/dL Creatinine 1.1 (0.8-1.3) mg/dL Estimated GFR > 60 ml/min BUN/Creatinine Ratio 12 % Glucose 98 (75-100) mg/dL Calcium 9.6 (8.4-10.2) mg/dL Magnesium (1.7-2.3) mg/dL Total Bilirubin 0.40 (0.1-1.2) mg/dL AST 60 H (5-40) units/L ALT 54 (7-56) units/L Alkaline Phosphatase 75 (35-129) units/L Ammonia (25-60) umol/L Total Creatine Kinase (55-170) units/L Total Protein 6.9 (6.3-8.2) g/dL Albumin 4.3 (3.9-5) g/dL Albumin/Globulin Ratio 1.7 % Salicylates (2.8-20.0) mg/dL Acetaminophen (10.0-30.0) ug/mL Plasma/Serum Alcohol < 0.01 (0-0.07) % 03/07/20 03/07/20 03/07/20 Range/Units 05:35 05:35 05:35 WBC (4.5-11.0) K/mm3 RBC (3.65-5.03) M/mm3 Hgb (11.8-15.2) gm/dl Hct (35.5-45.6) % MCV (84-94) fl MCH (28-32) pg MCHC (32-34) % RDW (13.2-15.2) % Plt Count (140-440) K/mm3 Lymph % (Auto) (13.4-35.0) % [place] % (Auto) (0.0-7.3) % Eos % (Auto) (0.0-4.3) % Baso % (Auto) (0.0-1.8) % Lymph # (Auto) (1.2-5.4) K/mm3 [place] # (Auto) (0.0-0.8) K/mm3 Eos # (Auto) (0.0-0.4) K/mm3 Baso # (Auto) (0.0-0.1) K/mm3 Seg Neutrophils % (40.0-70.0) % Seg Neutrophils # (1.8-7.7) K/mm3 Sodium (137-145) mmol/L Potassium (3.6-5.0) mmol/L Chloride (98-107) mmol/L Carbon Dioxide (22-30) mmol/L Anion Gap mmol/L BUN (9-20) mg/dL Creatinine (0.8-1.3) mg/dL Estimated GFR ml/min BUN/Creatinine Ratio % Glucose (75-100) mg/dL Calcium (8.4-10.2) mg/dL Magnesium (1.7-2.3) mg/dL Total Bilirubin (0.1-1.2) mg/dL AST (5-40) units/L ALT (7-56) units/L Alkaline Phosphatase (35-129) units/L Ammonia (25-60) umol/L Total Creatine Kinase 239 H (55-170) units/L Total Protein (6.3-8.2) g/dL Albumin (3.9-5) g/dL Albumin/Globulin Ratio % Salicylates < 0.3 L (2.8-20.0) mg/dL Acetaminophen 5.0 L (10.0-30.0) ug/mL Plasma/Serum Alcohol (0-0.07) % 03/07/20 03/07/20 Range/Units 05:41 05:41 WBC (4.5-11.0) K/mm3 RBC (3.65-5.03) M/mm3 Hgb (11.8-15.2) gm/dl Hct (35.5-45.6) % MCV (84-94) fl MCH (28-32) pg MCHC (32-34) % RDW (13.2-15.2) % Plt Count (140-440) K/mm3 Lymph % (Auto) (13.4-35.0) % [place] % (Auto) (0.0-7.3) % Eos % (Auto) (0.0-4.3) % Baso % (Auto) (0.0-1.8) % Lymph # (Auto) (1.2-5.4) K/mm3 [place] # (Auto) (0.0-0.8) K/mm3 Eos # (Auto) (0.0-0.4) K/mm3 Baso # (Auto) (0.0-0.1) K/mm3 Seg Neutrophils % (40.0-70.0) % Seg Neutrophils # (1.8-7.7) K/mm3 Sodium (137-145) mmol/L Potassium (3.6-5.0) mmol/L Chloride (98-107) mmol/L Carbon Dioxide (22-30) mmol/L Anion Gap mmol/L BUN (9-20) mg/dL Creatinine (0.8-1.3) mg/dL Estimated GFR ml/min BUN/Creatinine Ratio % Glucose (75-100) mg/dL Calcium (8.4-10.2) mg/dL Magnesium 1.60 L (1.7-2.3) mg/dL Total Bilirubin (0.1-1.2) mg/dL AST (5-40) units/L ALT (7-56) units/L Alkaline Phosphatase (35-129) units/L Ammonia 72.0 H (25-60) umol/L Total Creatine Kinase (55-170) units/L Total Protein (6.3-8.2) g/dL Albumin (3.9-5) g/dL Albumin/Globulin Ratio % Salicylates (2.8-20.0) mg/dL Acetaminophen (10.0-30.0) ug/mL Plasma/Serum Alcohol (0-0.07) % Vital Signs 03/07/20 03/07/20 03/07/20 05:00 05:45 06:00 Temperature 97.8 F Pulse Rate 106 H 103 H 102 H Respiratory 17 17 18 Rate Blood Pressure 140/78 147/97 Blood Pressure 151/91 [Right] O2 Sat by Pulse 96 94 94 Oximetry 03/07/20 03/07/20 03/07/20 06:15 07:15 08:15 Temperature Pulse Rate 105 H 102 H 100 H Respiratory 19 17 11 L Rate Blood Pressure 147/97 145/83 154/95 Blood Pressure [Right] O2 Sat by Pulse 100 96 96 Oximetry Lab Results 03/07/20 03/07/20 03/07/20 Range/Units 05:35 05:35 05:35 WBC 7.7 (4.5-11.0) K/mm3 RBC 4.68 (3.65-5.03) M/mm3 Hgb 14.8 (11.8-15.2) gm/dl Hct 43.9 (35.5-45.6) % MCV 94 (84-94) fl MCH 32 (28-32) pg MCHC 34 (32-34) % RDW 14.4 (13.2-15.2) % Plt Count 193 (140-440) K/mm3 Lymph % (Auto) 37.8 H (13.4-35.0) % [place] % (Auto) 7.8 H (0.0-7.3) % Eos % (Auto) 1.4 (0.0-4.3) % Baso % (Auto) 1.2 (0.0-1.8) % Lymph # (Auto) 2.9 (1.2-5.4) K/mm3 [place] # (Auto) 0.6 (0.0-0.8) K/mm3 Eos # (Auto) 0.1 (0.0-0.4) K/mm3 Baso # (Auto) 0.1 (0.0-0.1) K/mm3 Seg Neutrophils % 51.8 (40.0-70.0) % Seg Neutrophils # 4.0 (1.8-7.7) K/mm3 Sodium 136 L (137-145) mmol/L Potassium 3.4 L (3.6-5.0) mmol/L Chloride 87.7 L (98-107) mmol/L Carbon Dioxide 15 L (22-30) mmol/L Anion Gap 37 mmol/L BUN 13 (9-20) mg/dL Creatinine 1.1 (0.8-1.3) mg/dL Estimated GFR > 60 ml/min BUN/Creatinine Ratio 12 % Glucose 98 (75-100) mg/dL Calcium 9.6 (8.4-10.2) mg/dL Magnesium (1.7-2.3) mg/dL Total Bilirubin 0.40 (0.1-1.2) mg/dL AST 60 H (5-40) units/L ALT 54 (7-56) units/L Alkaline Phosphatase 75 (35-129) units/L Ammonia (25-60) umol/L Total Creatine Kinase (55-170) units/L Total Protein 6.9 (6.3-8.2) g/dL Albumin 4.3 (3.9-5) g/dL Albumin/Globulin Ratio 1.7 % Salicylates (2.8-20.0) mg/dL Acetaminophen (10.0-30.0) ug/mL Plasma/Serum Alcohol < 0.01 (0-0.07) % 03/07/20 03/07/20 03/07/20 Range/Units 05:35 05:35 05:35 WBC (4.5-11.0) K/mm3 RBC (3.65-5.03) M/mm3 Hgb (11.8-15.2) gm/dl Hct (35.5-45.6) % MCV (84-94) fl MCH (28-32) pg MCHC (32-34) % RDW (13.2-15.2) % Plt Count (140-440) K/mm3 Lymph % (Auto) (13.4-35.0) % [place] % (Auto) (0.0-7.3) % Eos % (Auto) (0.0-4.3) % Baso % (Auto) (0.0-1.8) % Lymph # (Auto) (1.2-5.4) K/mm3 [place] # (Auto) (0.0-0.8) K/mm3 Eos # (Auto) (0.0-0.4) K/mm3 Baso # (Auto) (0.0-0.1) K/mm3 Seg Neutrophils % (40.0-70.0) % Seg Neutrophils # (1.8-7.7) K/mm3 Sodium (137-145) mmol/L Potassium (3.6-5.0) mmol/L Chloride (98-107) mmol/L Carbon Dioxide (22-30) mmol/L Anion Gap mmol/L BUN (9-20) mg/dL Creatinine (0.8-1.3) mg/dL Estimated GFR ml/min BUN/Creatinine Ratio % Glucose (75-100) mg/dL Calcium (8.4-10.2) mg/dL Magnesium (1.7-2.3) mg/dL Total Bilirubin (0.1-1.2) mg/dL AST (5-40) units/L ALT (7-56) units/L Alkaline Phosphatase (35-129) units/L Ammonia (25-60) umol/L Total Creatine Kinase 239 H (55-170) units/L Total Protein (6.3-8.2) g/dL Albumin (3.9-5) g/dL Albumin/Globulin Ratio % Salicylates < 0.3 L (2.8-20.0) mg/dL Acetaminophen 5.0 L (10.0-30.0) ug/mL Plasma/Serum Alcohol (0-0.07) % 03/07/20 03/07/20 03/07/20 Range/Units 05:41 05:41 08:14 WBC (4.5-11.0) K/mm3 RBC (3.65-5.03) M/mm3 Hgb (11.8-15.2) gm/dl Hct (35.5-45.6) % MCV (84-94) fl MCH (28-32) pg MCHC (32-34) % RDW (13.2-15.2) % Plt Count (140-440) K/mm3 Lymph % (Auto) (13.4-35.0) % [place] % (Auto) (0.0-7.3) % Eos % (Auto) (0.0-4.3) % Baso % (Auto) (0.0-1.8) % Lymph # (Auto) (1.2-5.4) K/mm3 [place] # (Auto) (0.0-0.8) K/mm3 Eos # (Auto) (0.0-0.4) K/mm3 Baso # (Auto) (0.0-0.1) K/mm3 Seg Neutrophils % (40.0-70.0) % Seg Neutrophils # (1.8-7.7) K/mm3 Sodium 134 L (137-145) mmol/L Potassium 3.8 (3.6-5.0) mmol/L Chloride 91.1 L (98-107) mmol/L Carbon Dioxide 24 D (22-30) mmol/L Anion Gap 23 mmol/L BUN 11 (9-20) mg/dL Creatinine 0.8 (0.8-1.3) mg/dL Estimated GFR > 60 ml/min BUN/Creatinine Ratio 14 % Glucose 72 L (75-100) mg/dL Calcium 9.2 (8.4-10.2) mg/dL Magnesium 1.60 L (1.7-2.3) mg/dL Total Bilirubin (0.1-1.2) mg/dL AST (5-40) units/L ALT (7-56) units/L Alkaline Phosphatase (35-129) units/L Ammonia 72.0 H (25-60) umol/L Total Creatine Kinase (55-170) units/L Total Protein (6.3-8.2) g/dL Albumin (3.9-5) g/dL Albumin/Globulin Ratio % Salicylates (2.8-20.0) mg/dL Acetaminophen (10.0-30.0) ug/mL Plasma/Serum Alcohol (0-0.07) % - EKG Data 03/07/20 07:37 Sinus rhythm, tachycardia, 109 bpm, there is a normal axis, the QTC is 459 ms, there is high left ventricular voltage, the EKG is abnormal, the EKG is not a STEMI. - Radiology Data Radiology results: report reviewed, image reviewed Noncontrast CT scan of the brain is negative for acute finding Critical care attestation.: If time is entered above; I have spent that time in minutes in the direct care of this critically ill patient, excluding procedure time. ED Disposition Clinical Impression: Recurrent seizures, Hypomagnesemia, Hypokalemia Alcohol withdrawal seizure Qualifiers: Complication of substance-induced condition: uncomplicated Qualified Code(s): F10.230 - Alcohol dependence with withdrawal, uncomplicated Disposition: DC-07 LEFT AGAINST MED ADVICE Is pt being admited?: No Does the pt Need Aspirin: No Condition: Undetermined Additional Instructions: Strongly recommend that the patient avoid consumption of alcohol and recreational drugs as we discussed, you have left the hospital/emergency room AGAINST MEDICAL ADVICE. By leaving, you risked , disability, paralysis, permanent loss of quality of life. The ER is open 24 hours a day, 7 days a week. It never closes. Please return to the emergency room right away if and when you change your mind. If you decide not to return to the emergency room, please follow-up with the listed physician referrals as soon as possible. Do not drive or operate motor vehicles for the next 6 months, or until cleared to do so by a primary care doctor or neurologist. Referrals: CHANTAL POLLOCK MD [Staff Physician] - 3-5 Days [facility] [Provider Group] - 3-5 Days INGA LOCO MD [Referring] - 3-5 Days Forms: AMA Form
[2020-03-07] MEDS ORDERED: LORazepam 2 MG/ML VIAL IM PRN (06:18)
[2020-03-07] MEDS ORDERED: HALOPERIDOL LACTATE 5 MG/1 ML INJ IM PRN (06:18)
--- NOTE | 2020-03-07 06:49 | Cat Scan Report ---
CT head/brain wo con INDICATION: Seizure. TECHNIQUE: Routine CT head without contrast. All CT scans at this location are performed using CT dos e reduction for ALARA by means of automated exposure control. COMPARISON: Head CT on 02/11/2020 FINDINGS: BRAIN / INTRACRANIAL CONTENTS: There is stable chronic encephalomalacia in the left posterior tempora l lobe and left posterior insula. There is no new acute infarct. There is no hemorrhage, hydrocephalu s, or adverse mass effect. ORBITS: No significant abnormality of visualized orbits. SINUSES / MASTOIDS: No significant abnormality of visualized sinuses and mastoid air cells. ADDITIONAL FINDINGS: None. IMPRESSION: 1. No acute intracranial abnormality. No adverse change from the prior exam. Signer Name: Johny Fischer MD Signed: 03/07/2020 6:45 AM Workstation Name: [id number]
[2020-03-07] MEDS ORDERED: POTASSIUM CHLORIDE 10 MEQ 10 MEQ/100 ML BAG IV SCH (07:00)
[2020-03-07] MEDS ORDERED: DEXTROSE 50% IN WATER (25GM) 50 ML VIAL IV PRN (07:39)
[2020-03-07] MEDS ORDERED: D5W/0.45% NACL 1,000 ML IV SCH (08:00)
[2020-03-07 08:22] VITALS: BP 154/95
[2020-03-07 08:46] LABS: BUN/Creatinine Ratio 14; Blood Urea Nitrogen 11 mg/dL (9-20); Calcium 9.2 mg/dL (8.4-10.2); Hemolysis Index 15
== END 2020-03-07 08:56 | disposition left against medical advice (07) ==
LOC: ED 04:51
DX: G40.909 Epilepsy, unspecified, not intractable, without status epilepticus (principal); F10.230 Alcohol dependence with withdrawal, uncomplicated; E87.6 Hypokalemia; E83.42 Hypomagnesemia; Z79.899 Other long term (current) drug therapy
CPT/HCPCS: 36415; 70450; 80048; 80053; 82140; 82550; 83735; 85025; 93005; 96365; 96367; 96375; 99284; J1953; J3360; J3475; J3480; J7030; 80320; G0480

== ENCOUNTER 2020-07-26 13:32 | Emergency (ER) | payer SELFPAY ==
[2020-07-26 13:49] VITALS: BP 142/105
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
== END 2020-07-26 14:35 | disposition home or self-care (01) ==
LOC: ED 13:32
DX: G40.909 Epilepsy, unspecified, not intractable, without status epilepticus (principal); F10.239 Alcohol dependence with withdrawal, unspecified; F17.200 Nicotine dependence, unspecified, uncomplicated; F12.90 Cannabis use, unspecified, uncomplicated; Z79.899 Other long term (current) drug therapy; Z98.890 Other specified postprocedural states; Z76.0 Encounter for issue of repeat prescription
CPT/HCPCS: 99281

== ENCOUNTER 2020-12-08 13:18 | Emergency (ER) | payer SELFPAY ==
[2020-12-08 13:37] VITALS: BP 126/87
[2020-12-08 15:12] LABS: Hemoglobin 15.5 gm/dl (11.8-15.2); Mean Corpuscular HGB Conc 35 % (32-34); Mean Corpuscular Volume 90 fl (84-94); Platelet Count 223 K/mm3 (140-440); Red Blood Count 5.01 M/mm3 (3.65-5.03); Red Cell Distribution Width 15.4 % (13.2-15.2)
[2020-12-08 15:28] LABS: Alanine Aminotransferase 59 units/L (7-56); Albumin 4.7 g/dL (3.9-5); BUN/Creatinine Ratio 20; Blood Urea Nitrogen 16 mg/dL (9-20); Calcium 9.9 mg/dL (8.4-10.2); Hemolysis Index 4
[2020-12-08 16:14] LABS: Giant Platelets Rare; RBC Morphology Normal; Total Cells Counted 100
--- NOTE | 2020-12-09 09:56 | Electrocardiograph Report ---
[facility] Test Date: 2020-12-08 Test Time: 13:39:24 Pat Name: HENOK NEWBY Department: Room: Gender: M Manufacturing Director: JAIRO : 1980 Requested By: BARBARA ALBERT Order Number: [id number] Reading MD: Skyler Ferrara Measurements Intervals [place] Rate: 89 P: 69 MD: 152 QRS: 40 QRSD: 93 T: 12 QT: 370 QTc: 451 Interpretive Statements Sinus rhythm No previous ECG available for comparison Electronically Signed On 12-09-2020 9:56:25 EDT by Skyler Ferrara
== END 2020-12-08 16:56 | disposition left against medical advice (07) ==
LOC: ED 13:18
DX: R55 Syncope and collapse (principal); Z53.21 Procedure and treatment not carried out due to patient leaving prior to being seen by health care provider
CPT/HCPCS: 36415; 80053; 84484; 85007; 85025; 93005

== ENCOUNTER 2021-04-03 20:05 | Inpatient (IN) | payer SELFPAY ==
[2021-04-03] MEDS ORDERED: levETIRAcetam 1000 MG/NS 0.75% 1,000 MG/100 ML BAG IV ONE (20:11)
[2021-04-03 21:58] LABS: Hematocrit 43.1 % (35.5-45.6); Hemoglobin 13.8 gm/dl (11.8-15.2); Mean Corpuscular HGB Conc 32 % (32-34); Mean Corpuscular Volume 93 fl (84-94); Platelet Count 129 K/mm3 (140-440); Red Blood Count 4.62 M/mm3 (3.65-5.03); Red Cell Distribution Width 14.7 % (13.2-15.2)
[2021-04-03 22:14] LABS: BUN/Creatinine Ratio 6; Blood Urea Nitrogen 8 mg/dL (9-20); Hemolysis Index 6
[2021-04-03] MEDS ORDERED: LORazepam 2 MG/ML VIAL IV ONE (22:45)
[2021-04-03] MEDS ORDERED: LORazepam 2 MG/ML VIAL ONE (22:45)
[2021-04-03] MEDS ORDERED: LORazepam 2 MG/ML VIAL IV PRN ×2 (22:53)
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
[2021-04-04] MEDS ORDERED: LORazepam 2 MG/ML VIAL IV ONE (00:44)
[2021-04-04 01:35] LABS: Total Cells Counted 100
[2021-04-04 01:36] LABS: Anisocytosis 1+; Platelet Estimate Consistent w Auto
--- NOTE | 2021-04-04 01:37 | Cat Scan Report ---
CT HEAD WITHOUT CONTRAST INDICATION / CLINICAL INFORMATION: Status Epilepticus. TECHNIQUE: All CT scans at this location are performed using CT dose reduction for ALARA by means of automated e xposure control. COMPARISON: 03/07/2020 FINDINGS: There is diffuse low attenuation within the left posterior parietal lobe and within the left temporal lobe. No acute hemorrhage is seen. No midline shift or mass effect. No extra-axial fluid collection is seen. Visualized sinuses are clear. ADDITIONAL FINDINGS: None. IMPRESSION: 1. Area of cephalization left posterior parietal lobe and within left temporal lobe could represent a milka of prior ischemic change. Findings appear similar to prior exam. If there is concern for acute is chemic change MRI with diffusion is recommended. Signer Name: Larry Lopez MD Signed: 04/04/2021 1:33 AM Workstation Name: [email or web address]
[2021-04-04] MEDS ORDERED: oxyCODONE /ACETAMINOPHEN 5-325MG TAB PO PRN (01:45)
[2021-04-04] MEDS ORDERED: ALBUTEROL 2.5 MG/3 ML NEBU IH PRN (01:45)
[2021-04-04] MEDS ORDERED: ONDANSETRON 4 MG/2 ML INJ IV PRN (01:45)
[2021-04-04] MEDS ORDERED: HYDROmorphone 1 MG/1 ML INJ IV PRN (01:45)
[2021-04-04] MEDS ORDERED: ACETAMINOPHEN 325 MG TAB PO PRN (01:45)
[2021-04-04] MEDS ORDERED: THIAMINE 100 MG, FOLIC ACID 1 MG, MULTIPLE VITAMIN INJ, ADULT 10 ML in SODIUM CHLORIDE ... IV ONE (01:49)
--- NOTE | 2021-04-04 01:54 | History and Physical Report ---
History of Present Illness Date of examination: 04/04/21 Date of admission: 04/04/21 Chief complaint: Recurrent seizure History of present illness: 40-year-old male with past medical history of heavy alcohol abuse and seizure disorder was brought to the emergency room because of recurrent seizure. Patient has not had any alcohol intake for the last 2 weeks. Patient had witnessed seizure by family member prior to arrival. Second seizure witnessed per EMS. Patient received 5 mg of Versed in route. Patient is somnolent. Unable to give history Patient's previous diagnosis includes alcohol withdrawal seizures. CIWA 26 In the emergency room initial CT scan of the head shows area of cephalization left posterior parietal lobe and within the left temporal lobe could represent area. Ischemic changes. Findings appear similar to previous exam.CBC c unrem arkable Chemistry notable for hypokalemia, increased anion gap acidosis suspect lactic acidosis due to recurrent seizure. Patient received Keppra in the emergency department. However he continued to have seizures. Patient will need [facility] protocol for alcohol withdrawal. We will going to admit the patient to the critical care unit will consult neurology as well as critical care evaluation Med rec is done Past History Past Medical History: seizures (Asthma), other (Alcohol abuse) Medications and Allergies Allergies Allergy/AdvReac Type Severity Reaction Status Date / Time No Known Allergies Allergy Verified 04/03/21 20:22 Home Medications Medication Instructions Recorded Confirmed Last Taken Type Lactulose [Cephulac] 20 gm PO QDAY #500 ml 03/07/20 Unknown Rx Magnesium Oxide 400 mg PO QDAY #30 tablet 03/07/20 Unknown Rx Multivitamin with Folic Acid [Cvs 400 mcg PO QDAY #30 tablet 03/07/20 Unknown Rx One Daily Essential Tablet] Potassium Chloride 20 meq PO QDAY #30 packet 03/07/20 Unknown Rx chlordiazePOXIDE [Librium] 25 mg PO Q6H PRN #25 capsule 03/07/20 Unknown Rx levETIRAcetam [Keppra TAB] 500 mg PO BID #60 tablet 07/26/20 Unknown Rx Active Meds: Active Medications Lorazepam (Lorazepam 2 Mg/Ml Vial) 2 mg IV Q1H PRN PRN Reason: SREEWV-Ar 8-15 Last Admin: 04/03/21 23:17 Dose: 2 mg Documented by: Lorazepam (Lorazepam 2 Mg/Ml Vial) 4 mg IV Q1H PRN PRN Reason: CIWA-Ar 16-25 Review of Systems All systems: negative Neurological: seizures, confusion Exam - Constitutional Vitals: Temp Pulse Resp BP Pulse Ox 105 H 24 175/106 97 04/04/21 01:45 04/04/21 01:45 04/04/21 01:45 04/04/21 01:45 General appearance: Present: no acute distress, well-nourished - EENT Eyes: Present: PERRL ENT: hearing intact, clear oral mucosa - Neck Neck: Present: supple, normal ROM - Respiratory Respiratory effort: normal Respiratory: bilateral: CTA - Cardiovascular Heart Sounds: Present: S1 & S2. Absent: rub, click - Extremities Extremities: pulses symmetrical, No edema Peripheral Pulses: within normal limits - Abdominal General gastrointestinal: Present: soft, non-tender, non-distended, normal bowel sounds Male genitourinary: Present: normal - Integumentary Integumentary: Present: clear, warm, dry - Musculoskeletal Musculoskeletal: gait normal, strength equal bilaterally - Psychiatric Psychiatric: other (Altered mental status) - Neurologic Neurologic: CNII-XII intact, moves all extremities, other (Altered mental status) Results - Labs CBC & Chem 7: 04/03/21 21:17 04/03/21 21:17 Labs: Laboratory Last Values WBC 6.4 K/mm3 (4.5-11.0) 04/03/21 21:17 RBC 4.62 M/mm3 (3.65-5.03) 04/03/21 21:17 Hgb 13.8 gm/dl (11.8-15.2) 04/03/21 21:17 Hct 43.1 % (35.5-45.6) 04/03/21 21:17 MCV 93 fl (84-94) 04/03/21 21:17 MCH 30 pg (28-32) 04/03/21 21:17 MCHC 32 % (32-34) 04/03/21 21:17 RDW 14.7 % (13.2-15.2) 04/03/21 21:17 Plt Count 129 K/mm3 (140-440) L 04/03/21 21:17 Add Manual Diff Complete 04/03/21 21:17 Total Counted 100 04/03/21 21:17 Seg Neuts % (Manual) 60.0 % (40.0-70.0) 04/03/21 21:17 Lymphocytes % (Manual) 34.0 % (13.4-35.0) 04/03/21 21:17 Monocytes % (Manual) 6.0 % (0.0-7.3) 04/03/21 21:17 Nucleated RBC % Not Reportable 04/03/21 21:17 Seg Neutrophils # Man 3.8 K/mm3 (1.8-7.7) 04/03/21 21:17 Band Neutrophils # 0.0 K/mm3 04/03/21 21:17 Lymphocytes # (Manual) 2.2 K/mm3 (1.2-5.4) 04/03/21 21:17 Abs React Lymphs (Man) 0.0 K/mm3 04/03/21 21:17 Monocytes # (Manual) 0.4 K/mm3 (0.0-0.8) 04/03/21 21:17 Eosinophils # (Manual) 0.0 K/mm3 (0.0-0.4) 04/03/21 21:17 Basophils # (Manual) 0.0 K/mm3 (0.0-0.1) 04/03/21 21:17 Metamyelocytes # 0.0 K/mm3 04/03/21 21:17 Myelocytes # 0.0 K/mm3 04/03/21 21:17 Promyelocytes # 0.0 K/mm3 04/03/21 21:17 Blast Cells # 0.0 K/mm3 04/03/21 21:17 WBC Morphology Not Reportable 04/03/21 21:17 Hypersegmented Neuts Not Reportable 04/03/21 21:17 Hyposegmented Neuts Not Reportable 04/03/21 21:17 Hypogranular Neuts Not Reportable 04/03/21 21:17 Smudge Cells Not Reportable 04/03/21 21:17 Toxic Granulation Not Reportable 04/03/21 21:17 Toxic Vacuolation Not Reportable 04/03/21 21:17 Dohle Bodies Not Reportable 04/03/21 21:17 Pelger-Huet Anomaly Not Reportable 04/03/21 21:17 Tien Rods Not Reportable 04/03/21 21:17 Platelet Estimate Consistent w auto 04/03/21 21:17 Clumped Platelets Not Reportable 04/03/21 21:17 Plt Clumps, EDTA Not Reportable 04/03/21 21:17 Large Platelets Not Reportable 04/03/21 21:17 Giant Platelets Not Reportable 04/03/21 21:17 Platelet Satelliting Not Reportable 04/03/21 21:17 Plt Morphology Comment Not Reportable 04/03/21 21:17 RBC Morphology Not Reportable 04/03/21 21:17 Dimorphic RBCs Not Reportable 04/03/21 21:17 Polychromasia Not Reportable 04/03/21 21:17 Hypochromasia Not Reportable 04/03/21 21:17 Poikilocytosis Not Reportable 04/03/21 21:17 Anisocytosis 1+ 04/03/21 21:17 Microcytosis Not Reportable 04/03/21 21:17 Macrocytosis Not Reportable 04/03/21 21:17 Spherocytes Not Reportable 04/03/21 21:17 Pappenheimer Bodies Not Reportable 04/03/21 21:17 Sickle Cells Not Reportable 04/03/21 21:17 Target Cells Not Reportable 04/03/21 21:17 Tear Drop Cells Not Reportable 04/03/21 21:17 Ovalocytes Not Reportable 04/03/21 21:17 Helmet Cells Not Reportable 04/03/21 21:17 [place] Bodies Not Reportable 04/03/21 21:17 [place] Rings Not Reportable 04/03/21 21:17 [place] Cells Not Reportable 04/03/21 21:17 Bite Cells Not Reportable 04/03/21 21:17 Crenated Cell Not Reportable 04/03/21 21:17 Elliptocytes Not Reportable 04/03/21 21:17 Acanthocytes (Spur) Not Reportable 04/03/21 21:17 Rouleaux Not Reportable 04/03/21 21:17 Hemoglobin C Crystals Not Reportable 04/03/21 21:17 Schistocytes Not Reportable 04/03/21 21:17 Malaria parasites Not Reportable 04/03/21 21:17 Santhosh Bodies Not Reportable 04/03/21 21:17 Hem Pathologist Commnt No 04/03/21 21:17 Sodium 136 mmol/L (137-145) L 04/03/21 21:17 Potassium 3.0 mmol/L (3.6-5.0) L 04/03/21 21:17 Chloride 93.9 mmol/L (98-107) L 04/03/21 21:17 Carbon Dioxide 18 mmol/L (22-30) L 04/03/21 21:17 Anion Gap 27 mmol/L 04/03/21 21:17 BUN 8 mg/dL (9-20) L 04/03/21 21:17 Creatinine 1.3 mg/dL (0.8-1.3) 04/03/21 21:17 Estimated GFR > 60 ml/min 04/03/21 21:17 BUN/Creatinine Ratio 6 % 04/03/21 21:17 Glucose 156 mg/dL (75-100) H 04/03/21 21:17 POC Glucose 186 mg/dL (70-105) H 04/03/21 22:54 Calcium 9.0 mg/dL (8.4-10.2) 04/03/21 21:17 - Imaging and Cardiology CT Scan - head: report reviewed Assessment and Plan VTE prophylaxis?: Mechanical Plan of care discussed with patient/family: Yes - Patient Problems (1) Alcohol withdrawal seizure Current Visit: Yes Status: Acute Plan to address problem: Admit the patient to the critical care unit overnight. N.p.o. D5 half-normal saline at the rate of 100 cc/h. Ativan 2 mg IV every 4 hours as needed. Keppra 500 IV every 12 hours. We continue the home medication. EEG will consult neurology for evaluation. We also consult critical care evaluation. Recheck CMP in the morning (2) Delirium tremens Current Visit: Yes Status: Acute Plan to address problem: N.p.o. D5 half-normal saline at the rate of 100 cc/h. Ativan 2 mg IV every 4 hours as needed. We will put the patient on CIWA protocol. We also put the patient on thiamine folic acid and banana bag daily. We also consult critical care evaluation. Recheck CMP in the morning (3) Status epilepticus Current Visit: Yes Status: Acute Plan to address problem: N.p.o. D5 half-normal saline at the rate of 100 cc/h. Ativan 2 mg IV every 4 hours as needed. Keppra 500 IV every 12 hours. We continue the home medication. EEG will consult neurology for evaluation. We also consult critical care evaluation. Recheck CMP in the morning (4) Hypokalemia Current Visit: No Status: Acute Plan to address problem: Potassium is supplemented. Recheck BMP in the morning. (5) Asthma Current Visit: Yes Status: Acute Plan to address problem: Oxygen per nasal cannula 3 L/min. DuoNeb by nebulizer every 4 hours. Albuterol via nebulizer every 4 hours as needed (6) High anion gap metabolic acidosis Current Visit: No Status: Acute Plan to address problem: N.p.o. D5 half-normal saline at the rate of 100 cc/h. Pepcid 20 mg IV every 12 hours. Recheck CMP in the morning (7) DVT prophylaxis Current Visit: Yes Status: Acute Plan to address problem: CT for DVT prophylaxis. Pepcid 20 mg IV every 12 hours for GI prophylaxis. Patient is a full code
[2021-04-04] MEDS ORDERED: IPRATROPIUM/ALBUTEROL SULFATE 3 ML AMPUL.NEB IH SCH (02:00)
[2021-04-04] MEDS ORDERED: D5W/0.45% NACL 1,000 ML IV SCH (02:00)
[2021-04-04] MEDS ORDERED: POTASSIUM CHLORIDE 10 MEQ 10 MEQ/100 ML BAG IV SCH (03:00)
[2021-04-04 04:45] LABS: Mucus,Urine FEW /HPF
[2021-04-04 04:49] LABS: Amphetamine Screen,Urine PRESUMPTIVE NEGATIVE; Benzodiazepines Screen,Urine PRESUMPTIVE POSITIVE; Cannabinoid Screen,Urine PRESUMPTIVE POSITIVE; Cocaine Screen,Urine PRESUMPTIVE NEGATIVE; Methadone Screen,Urine PRESUMPTIVE NEGATIVE; Opiate Screen,Urine PRESUMPTIVE NEGATIVE
--- NOTE | 2021-04-04 08:17 | Consultation ---
History of Present Illness Consult date: 04/04/21 Reason for Consult: Recurrent seizure and hx of alcoholism ,last drink>2 weeks ago History of present illness: pt. signed AMA could not evaluate Past History Past Medical History: seizures (Asthma), other (Alcohol abuse) Medications and Allergies Allergies Allergy/AdvReac Type Severity Reaction Status Date / Time No Known Allergies Allergy Verified 04/03/21 20:22 Home Medications Medication Instructions Recorded Confirmed Last Taken Type Lactulose [Cephulac] 20 gm PO QDAY #500 ml 03/07/20 Unknown Rx Magnesium Oxide 400 mg PO QDAY #30 tablet 03/07/20 Unknown Rx Multivitamin with Folic Acid [[facility] 400 mcg PO QDAY #30 tablet 03/07/20 Unknown Rx One Daily Essential Tablet] Potassium Chloride 20 meq PO QDAY #30 packet 03/07/20 Unknown Rx chlordiazePOXIDE [Librium] 25 mg PO Q6H PRN #25 capsule 03/07/20 Unknown Rx levETIRAcetam [Keppra TAB] 500 mg PO BID #60 tablet 07/26/20 Unknown Rx Active Meds: Active Medications Acetaminophen (Acetaminophen 325 Mg Tab) 650 mg PO Q4H PRN PRN Reason: Pain MILD(1-3)/Fever >100.5/BENEDICT Albuterol (Albuterol 2.5 Mg/3 Ml Nebu) 2.5 mg IH Q4HRT PRN PRN Reason: Shortness Of Breath Albuterol/Ipratropium (Ipratropium/Albuterol Sulfate 3 Ml Ampul.Neb) 1 ampul IH Q6HRT ECHO Famotidine (Famotidine 20 Mg/2 Ml Inj) 20 mg IV BID ECHO Hydromorphone HCl (Hydromorphone 1 Mg/1 Ml Inj) 0.5 mg IV Q3H PRN PRN Reason: Pain , Severe (7-10) Dextrose/Sodium Chloride (D5/0.45ns) 1,000 mls @ 100 mls/hr IV DIRECT ECHO Levetiracetam 500 mg/ Dextrose 105 mls @ 400 mls/hr IV Q12HR ECHO Lactulose (Lactulose 20 Gm/30 Ml Oral Liqd) 20 gm PO QDAY ECHO Lorazepam (Lorazepam 2 Mg/Ml Vial) 2 mg IV Q1H PRN PRN Reason: CIWA-Ar 8-15 Last Admin: 04/03/21 23:17 Dose: 2 mg Documented by: Lorazepam (Lorazepam 2 Mg/Ml Vial) 4 mg IV Q1H PRN PRN Reason: CIWA-Ar 16-25 Magnesium Oxide (Magnesium Oxide 400 Mg Tab) 400 mg PO QDAY [facility] Multivitamins (Multivitamins ,Therapeutic Tab) 1 each PO QDAY ECHO Ondansetron HCl (Ondansetron 4 Mg/2 Ml Inj) 4 mg IV Q8H PRN PRN Reason: Nausea And Vomiting Oxycodone/Acetaminophen (Oxycodone /Acetaminophen 5-325mg Tab) 1 tab PO Q6H PRN PRN Reason: Pain, Moderate (4-6) Potassium Chloride (Potassium Chloride 20 Meq Packet) 20 meq PO QDAY ECHO Sodium Chloride (Sodium Chloride 0.9% 10 Ml Flush Syringe) 10 ml IV BID ECHO Sodium Chloride (Sodium Chloride 0.9% 10 Ml Flush Syringe) 10 ml IV PRN PRN PRN Reason: LINE FLUSH Physical Examination - Vital Signs Vital Signs: Vital Signs Resp 30 H 04/03/21 20:15 Results - Laboratory Findings CBC and BMP: 04/04/21 08:50 04/04/21 08:50 Abnormal Lab Findings: Abnormal Labs 04/03/21 04/03/21 04/03/21 21:17 21:17 22:54 Plt Count 129 L Sodium 136 L Potassium 3.0 L Chloride 93.9 L Carbon Dioxide 18 L BUN 8 L Glucose 156 H POC Glucose 186 H Assessment and Plan pt. is not seen he signed AMA
[2021-04-04 08:34] VITALS: BP 166/95
[2021-04-04 09:07] LABS: Hematocrit 41.7 % (35.5-45.6); Hemoglobin 13.9 gm/dl (11.8-15.2); Mean Corpuscular HGB Conc 33 % (32-34); Mean Corpuscular Volume 91 fl (84-94); Platelet Count 135 K/mm3 (140-440); Red Blood Count 4.59 M/mm3 (3.65-5.03); Red Cell Distribution Width 14.4 % (13.2-15.2)
--- NOTE | 2021-04-04 09:15 | Event Note ---
Date: 04/04/21 Paged by RN that patient would like to leave AMA. Discussed with patient the nature of his current medical condition and the need for further evaluation and treatment. Patient states that he has to go and attend to daughter. Advised to him to get external support if necessary. Patient is still adamant about leaving AMA. I further explained to him the risks of leaving without further evaluation which include the potential for a repeat seizure, potential permanent debilitation, or potential . He understood these risks and stated that he still would like to leave.
[2021-04-04 09:27] LABS: Alanine Aminotransferase 78 units/L (7-56); Albumin 4.3 g/dL (3.9-5); BUN/Creatinine Ratio 4; Blood Urea Nitrogen 4 mg/dL (9-20); Hemolysis Index 3
[2021-04-04] MEDS ORDERED: levETIRAcetam 500 MG in DEXTROSE 5% IN WATER 100 ML IV SCH (10:00)
[2021-04-04] MEDS ORDERED: FAMOTIDINE 20 MG/2 ML INJ IV SCH (10:00)
[2021-04-04] MEDS ORDERED: POTASSIUM CHLORIDE 20 MEQ PACKET PO SCH (10:00)
[2021-04-04] MEDS ORDERED: levETIRAcetam 500 MG TAB PO SCH (10:00)
[2021-04-04] MEDS ORDERED: MAGNESIUM OXIDE 400 MG TAB PO SCH (10:00)
[2021-04-04] MEDS ORDERED: LACTULOSE 20 GM/30 ML ORAL LIQD PO SCH (10:00)
[2021-04-04] MEDS ORDERED: MULTIVITAMINS ,THERAPEUTIC TAB PO SCH (10:00)
--- NOTE | 2021-04-04 11:21 | Discharge Summary ---
Providers - Providers Date of Admission: 04/04/21 03:39 Date of discharge: 04/04/21 Attending physician: SOFIA GABRIEL MD 04/04/21 01:49 Consult to Physician [CONS] Routine Comment: Consulting Provider: LAURA FOSS Physician Instructions: Reason For Exam: Seizure Primary care physician: EQUINE DENTIST Hospitalization Reason for admission: siezure Condition: Critical Hospital course: History of present illness: 40-year-old male with past medical history of heavy alcohol abuse and seizure disorder was brought to the emergency room because of recurrent seizure. Patient has not had any alcohol intake for the last 2 weeks. Patient had witnessed seizure by family member prior to arrival. Second seizure witnessed per EMS. Patient received 5 mg of Versed in route. Patient is somnolent. Unable to give history Patient's previous diagnosis includes alcohol withdrawal seizures. CIWA 26 In the emergency room initial CT scan of the head shows area of cephalization left posterior parietal lobe and within the left temporal lobe could represent area. Ischemic changes. Findings appear similar to previous exam.CBC c unremarkable Chemistry notable for hypokalemia, increased anion gap acidosis suspect lactic acidosis due to recurrent seizure. Patient received Keppra in the emergency department. However he continued to have seizures. Patient will need CIWA protocol for alcohol withdrawal. We will going to admit the patient to the critical care unit will consult neurology as well as critical care evaluation Med rec is done Hospital course Patient was seen and evaluated this morning. He states that he wanted to leave AMA. After lengthy discussion regarding potential harms to his health if he were to leave early prior to complete work-up and treatment, the patient still wanted to leave. Patient is alert and oriented x4 and was competent to make this decision. AMA paperwork signed. Disposition: LEFT AGAINST MEDICAL ADVICE Final Discharge Diagnosis (Prints w/discharge instructions): siezure Time spent for discharge: 35 Core Measure Documentation - Palliative Care Palliative Care/ Comfort Measures: Not Applicable - Core Measures Any of the following diagnoses?: none Exam - Physical Exam Narrative exam: General appearance: Present: no acute distress, well-nourished - EENT Eyes: Present: PERRL ENT: hearing intact, clear oral mucosa - Neck Neck: Present: supple, normal ROM - Respiratory Respiratory effort: normal Respiratory: bilateral: CTA - Cardiovascular Heart Sounds: Present: S1 & S2. Absent: rub, click - Extremities Extremities: pulses symmetrical, No edema Peripheral Pulses: within normal limits - Abdominal General gastrointestinal: Present: soft, non-tender, non-distended, normal bowel sounds Male genitourinary: Present: normal - Integumentary Integumentary: Present: clear, warm, dry - Musculoskeletal Musculoskeletal: gait normal, strength equal bilaterally - Psychiatric Psychiatric: other (Altered mental status) - Neurologic Neurologic: CNII-XII intact, moves all extremities, other (Altered mental status) - Constitutional Vitals: Temp Pulse Resp BP Pulse Ox 99.3 F 100 H 18 166/95 100 04/04/21 08:22 04/04/21 08:22 04/04/21 08:22 04/04/21 08:22 04/04/21 08:34 Plan Follow up with: PRIMARY MD JEREMIAS [Primary Care Provider] - 7 Days
== END 2021-04-04 09:08 | disposition left against medical advice (07) | DRG 101 ==
LOC: ED 20:05 → CC1 04-04 03:39
PROVIDERS: ADMIT Hospitalist; ATTEND Internal Medicine
DX: G40.909 Epilepsy, unspecified, not intractable, without status epilepticus (principal); F10.231 Alcohol dependence with withdrawal delirium; E87.2 Acidosis; F17.210 Nicotine dependence, cigarettes, uncomplicated; E87.6 Hypokalemia; J45.909 Unspecified asthma, uncomplicated
CPT/HCPCS: 36415; 70450; 80048; 80053; 80307; 80320; 81015; 82140; 82962; 83735; 84100; 85007; 85025; 85027; G0378; G0480; J1953; J2060; J3411; J7030

== ENCOUNTER 2021-05-10 11:38 | Emergency (ER) | payer SELFPAY ==
[2021-05-10 11:47] VITALS: BP 154/111
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
== END 2021-05-10 12:35 | disposition home or self-care (01) ==
LOC: ED 11:38
DX: R56.9 Unspecified convulsions (principal); Z76.0 Encounter for issue of repeat prescription; J45.909 Unspecified asthma, uncomplicated; F17.200 Nicotine dependence, unspecified, uncomplicated; F12.10 Cannabis abuse, uncomplicated
CPT/HCPCS: 99281

== ENCOUNTER 2021-07-11 23:27 | Inpatient (IN) | payer SELFPAY ==
[2021-07-11] MEDS ORDERED: diazePAM 10 MG/2 ML SYRINGE IV ONE (23:53)
[2021-07-11] MEDS ORDERED: LORazepam 2 MG/ML VIAL IV PRN ×2 (23:53)
[2021-07-11] MEDS ORDERED: levETIRAcetam 1000 MG/NS 0.75% 1,000 MG/100 ML BAG IV ONE (23:53)
[2021-07-11] MEDS ORDERED: HALOPERIDOL LACTATE 5 MG/1 ML INJ IM ONE (23:54)
[2021-07-11] MEDS ORDERED: THIAMINE 100 MG, FOLIC ACID 1 MG, MULTIPLE VITAMIN INJ, ADULT 10 ML in SODIUM CHLORIDE ... IV ONE (23:54)
[2021-07-11] MEDS ORDERED: LACTATED RINGERS 1,000 ML IV ONE (23:54)
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
[2021-07-12 00:33] LABS: INR 2.09 (0.87-1.13)
[2021-07-12 00:45] LABS: Albumin 4.3 g/dL (3.9-5); BUN/Creatinine Ratio 10; Blood Urea Nitrogen 10 mg/dL (9-20); Calcium 8.9 mg/dL (8.4-10.2); Hemolysis Index 14
[2021-07-12 00:57] LABS: Alanine Aminotransferase > 700 units/L (7-56); Basophils # (Auto) 0.1 K/mm3 (0.0-0.1); Basophils % (Auto) 1.1 % (0.0-1.8); Eosinophils # (Auto) 0.1 K/mm3 (0.0-0.4); Hemoglobin 13.4 gm/dl (11.8-15.2); Lymphocytes % (Auto) 35.7 % (13.4-35.0); Mean Corpuscular HGB Conc 33 % (32-34); Mean Corpuscular Volume 91 fl (84-94); Monocytes # (Auto) 0.7 K/mm3 (0.0-0.8); Monocytes % (Auto) 8.8 % (0.0-7.3); Platelet Count 258 K/mm3 (140-440); Red Cell Distribution Width 15.9 % (13.2-15.2)
[2021-07-12] MEDS ORDERED: MAGNESIUM SULFATE 4 GM/100 ML BAG IV ONE (01:09)
[2021-07-12 01:40] LABS: Hepatitis B Surface Antigen Non-Reactive (Negative); Hepatitis C Virus Antibody Non-Reactive (NonReactive)
[2021-07-12] MEDS: LORazepam 2 MG/ML VIAL IV PRN ×2 (02:01→05:22)
--- NOTE | 2021-07-12 02:03 | Cat Scan Report ---
CT head/brain wo con INDICATION / CLINICAL INFORMATION: Seizure. TECHNIQUE: Axial CT imaging of the brain was obtained without contrast. Coronal and sagittal reformatted imaging obtained and reviewed. All CT scans at this location are performed using CT dose reduction for ALAR A by means of automated exposure control. COMPARISON: Prior head CT 04/04/2021 FINDINGS: No intracranial hemorrhage, mass, or midline shift is noted. No extra-axial fluid collection. No acut e territorial infarction identified. Ventricular system and basilar cisterns are unremarkable. There is area of encephalomalacia within the posterior left parietal lobe consistent with old CVA, an d unchanged from prior exams.. Visualized paranasal sinuses and mastoid air cells are clear. Frontal sinuses were never pneumatized. No calvarial abnormality. IMPRESSION: 1. No acute intracranial abnormality. No interval change from prior exams. Signer Name: Jacqui Henry MD Signed: 07/12/2021 1:59 AM Workstation Name: [id number]
--- NOTE | 2021-07-12 02:07 | Cat Scan Report ---
CT cervical spine wo con INDICATION / CLINICAL INFORMATION: Seizure. TECHNIQUE: Axial CT imaging of the cervical spine was obtained without contrast. Coronal and sagittal reformatte d imaging obtained and reviewed. All CT scans at this location are performed using CT dose reduction for ALARA by means of automated exposure control. COMPARISON: None available. FINDINGS: CT of the cervical spine without contrast does not demonstrate any cervical spine fracture or malalig nment. Disc spaces and vertebral body heights are fairly well-preserved. No beto disc herniation is noted. Paravertebral soft tissues are unremarkable. Visualized lung apices are clear. IMPRESSION: 1. No significant osseous abnormality of the cervical spine. Signer Name: Jacqui Henry MD Signed: 07/12/2021 2:03 AM Workstation Name: [id number]
[2021-07-12 02:19] LABS: Amphetamine Screen,Urine Negative; Benzodiazepines Screen,Urine Negative; Bilirubin,Urine NEG (Negative); Blood,Urine MOD (Negative); Cocaine Screen,Urine Negative; Color,Urine Amber (Yellow); Methadone Screen,Urine Negative; Opiate Screen,Urine Negative; RBC,Urine < 1.0 /HPF (0.0-6.0)
[2021-07-12 02:20] LABS: WBC,Urine < 1.0 /HPF (0.0-6.0)
[2021-07-12 03:10] LABS: Cannabinoid Screen,Urine PRESUMPTIVE POSITIVE
--- NOTE | 2021-07-12 03:19 | XRay Report ---
CHEST 1 VIEW INDICATION / CLINICAL INFORMATION: seizure ams. COMPARISON: 02/11/2020 FINDINGS: SUPPORT DEVICES: None. HEART / MEDIASTINUM: No significant abnormality. LUNGS / PLEURA: No significant pulmonary or pleural abnormality. No pneumothorax. ADDITIONAL FINDINGS: No significant additional findings. IMPRESSION: 1. No acute findings. Signer Name: Jacqui Henry MD Signed: 07/12/2021 3:14 AM Workstation Name: [id number]
--- NOTE | 2021-07-12 03:27 | Ultrasound Report ---
ULTRASOUND ABDOMEN, LIMITED (RIGHT UPPER QUADRANT) INDICATION: transaminits. COMPARISON: None available. FINDINGS: Pancreas: Visualized portion shows no significant abnormality. Liver: The liver is enlarged measuring nearly 18 cm. The hepatic echotexture is diffusely heterogeneo us and slightly echogenic. Overall appearance is nonspecific but does imply hepatocellular disease. Gallbladder: Normal. No gallbladder wall thickening or gallstones identified. Bile ducts: Normal. Common Bile Duct measures 3 mm. Free fluid: None. Additional Findings: None. IMPRESSION: 1. Abnormal appearance of the liver. The liver is enlarged with diffusely heterogeneous and slightly echogenic echotexture. The appearance is consistent with hepatocellular disease. 2. Normal appearance of the gallbladder and pancreas. Signer Name: Jacqui Henry MD Signed: 07/12/2021 3:23 AM Workstation Name: [id number]
[2021-07-12] MEDS ORDERED: HALOPERIDOL LACTATE 5 MG/1 ML INJ ONE (03:34)
[2021-07-12] MEDS ORDERED: ONDANSETRON 4 MG/2 ML INJ IV PRN (04:15)
[2021-07-12] MEDS ORDERED: ACETAMINOPHEN 325 MG TAB PO PRN (04:15)
[2021-07-12] MEDS ORDERED: ALBUTEROL 2.5 MG/3 ML NEBU IH PRN (04:15)
[2021-07-12] MEDS ORDERED: MORPHINE 2 MG/1 ML INJ IV PRN (04:15)
[2021-07-12] MEDS ORDERED: HYDROmorphone 1 MG/1 ML INJ IV PRN (04:15)
[2021-07-12] MEDS ORDERED: HALOPERIDOL LACTATE 5 MG/1 ML INJ IM ONE (04:17)
[2021-07-12] MEDS ORDERED: hydrALAZINE 20 MG/1 ML INJ IV PRN (04:17)
--- NOTE | 2021-07-12 04:22 | History and Physical Report ---
History of Present Illness Date of examination: 07/12/21 Date of admission: 07/12/21 Chief complaint: Alcohol withdrawal seizure History of present illness: 40-year-old male with history of alcoholism, and alcohol-related withdrawal seizures was brought to the hospital by EMS today with an EMS articulated complaint of seizure and alcohol withdrawal. The patient is awake but altered. The patient is moving 4 extremities. EMS reports normal Accu-Chek in the field. While in the emergency room, the patient had a generalized tonic-clonic seizure which lasted for around 30 seconds. It was terminated with 4 mg of Ativan. The patient is currently awake, moving his extremities, and is very tremulous, tachycardic and anxious. No additional history is available at this time In the emergency room patient magnesium is 0.90 ammonia 39.0 plasma alcohol level is 0.01 , also patient AST is greater than 700 and ALT greater than 700, total bilirubin 2.[address] scan of the head shows no acute intracranial abnormality. Chest x-ray showed no acute finding . so going to admit the patient to [facility]. We will put the patient on CIWA protocol and consult GI for ev aluation Past History Past Medical History: seizures (Alcohol abuse), other Medications and Allergies Allergies Allergy/AdvReac Type Severity Reaction Status Date / Time No Known Allergies Allergy Verified 07/11/21 23:35 Home Medications Medication Instructions Recorded Confirmed Last Taken Type Lactulose [Cephulac] 20 gm PO QDAY #500 ml 03/07/20 Unknown Rx Magnesium Oxide 400 mg PO QDAY #30 tablet 03/07/20 Unknown Rx Multivitamin with Folic Acid [Cvs 400 mcg PO QDAY #30 tablet 03/07/20 Unknown Rx One Daily Essential Tablet] Potassium Chloride 20 meq PO QDAY #30 packet 03/07/20 Unknown Rx chlordiazePOXIDE [Librium] 25 mg PO Q6H PRN #25 capsule 03/07/20 Unknown Rx levETIRAcetam [Keppra TAB] 500 mg PO BID #60 tablet 05/10/21 Unknown Rx Active Meds: Active Medications Acetaminophen (Acetaminophen 325 Mg Tab) 650 mg PO Q4H PRN PRN Reason: Pain MILD(1-3)/Fever >100.5/BENEDICT Magnesium Sulfate (Magnesium Sulfate 4gm/100ml) 4 gm in 100 mls @ 25 mls/hr IV ONCE ONE Stop: 07/12/21 05:08 Last Admin: 07/12/21 02:00 Dose: 25 mls/hr Lorazepam (Lorazepam 2 Mg/Ml Vial) 2 mg IV Q1HR PRN PRN Reason: CIWA-Ar 8-15 Last Admin: 07/12/21 02:01 Dose: 2 mg Lorazepam (Lorazepam 2 Mg/Ml Vial) 4 mg IV Q1HR PRN PRN Reason: CIWA-Ar 16-25 Last Admin: 07/12/21 00:00 Dose: 4 mg Lorazepam (Lorazepam 2 Mg/Ml Vial) 4 mg IV Q15MIN PRN PRN Reason: CIWA-Ar >25 Ondansetron HCl (Ondansetron 4 Mg/2 Ml Inj) 4 mg IV Q8H PRN PRN Reason: Nausea And Vomiting Sodium Chloride (Sodium Chloride 0.9% 10 Ml Flush Syringe) 10 ml IV BID ECHO Review of Systems All systems: negative Neurological: seizures Exam - Constitutional Vitals: Temp Pulse Resp BP Pulse Ox 98.9 F 111 H 21 129/79 90 07/11/21 23:35 07/12/21 03:00 07/12/21 03:00 07/12/21 03:00 07/12/21 03:17 General appearance: Present: no acute distress, well-nourished - EENT Eyes: Present: PERRL ENT: hearing intact, clear oral mucosa - Neck Neck: Present: supple, normal ROM - Respiratory Respiratory effort: normal Respiratory: bilateral: CTA - Cardiovascular Heart Sounds: Present: S1 & S2. Absent: rub, click - Extremities Extremities: pulses symmetrical, No edema Peripheral Pulses: within normal limits - Abdominal General gastrointestinal: Present: soft, non-tender, non-distended, normal bowel sounds Male genitourinary: Present: normal - Integumentary Integumentary: Present: clear, warm, dry - Musculoskeletal Musculoskeletal: gait normal, strength equal bilaterally - Psychiatric Psychiatric: appropriate mood/affect, intact judgment & insight - Neurologic Neurologic: CNII-XII intact, moves all extremities Results - Labs CBC & Chem 7: 07/11/21 23:57 07/11/21 23:57 Labs: Laboratory Last Values WBC 8.3 K/mm3 (4.5-11.0) 07/11/21 23:57 RBC 4.40 M/mm3 (3.65-5.03) 07/11/21 23:57 Hgb 13.4 gm/dl (11.8-15.2) 07/11/21 23:57 Hct 40.0 % (35.5-45.6) 07/11/21 23:57 MCV 91 fl (84-94) 07/11/21 23:57 MCH 30 pg (28-32) 07/11/21 23:57 MCHC 33 % (32-34) 07/11/21 23:57 RDW 15.9 % (13.2-15.2) H 07/11/21 23:57 Plt Count 258 K/mm3 (140-440) 07/11/21 23:57 Lymph % (Auto) 35.7 % (13.4-35.0) H 07/11/21 23:57 [place] % (Auto) 8.8 % (0.0-7.3) H 07/11/21 23:57 Eos % (Auto) 1.0 % (0.0-4.3) 07/11/21 23:57 Baso % (Auto) 1.1 % (0.0-1.8) 07/11/21 23:57 Lymph # (Auto) 3.0 K/mm3 (1.2-5.4) 07/11/21 23:57 [place] # (Auto) 0.7 K/mm3 (0.0-0.8) 07/11/21 23:57 Eos # (Auto) 0.1 K/mm3 (0.0-0.4) 07/11/21 23:57 Baso # (Auto) 0.1 K/mm3 (0.0-0.1) 07/11/21 23:57 Seg Neutrophils % 53.4 % (40.0-70.0) 07/11/21 23:57 Seg Neutrophils # 4.4 K/mm3 (1.8-7.7) 07/11/21 23:57 PT 25.3 Sec. (12.2-14.9) H 07/11/21 23:57 INR 2.09 (0.87-1.13) H 07/11/21 23:57 APTT 26.5 Sec. (24.2-36.6) 07/11/21 23:57 Sodium 135 mmol/L (137-145) L 07/11/21 23:57 Potassium 3.5 mmol/L (3.6-5.0) L 07/11/21 23:57 Chloride 89.5 mmol/L (98-107) L 07/11/21 23:57 Carbon Dioxide 24 mmol/L (22-30) 07/11/21 23:57 Anion Gap 25 mmol/L 07/11/21 23:57 BUN 10 mg/dL (9-20) 07/11/21 23:57 Creatinine 1.0 mg/dL (0.8-1.3) 07/11/21 23:57 Estimated GFR > 60 ml/min 07/11/21 23:57 BUN/Creatinine Ratio 10 % 07/11/21 23:57 Glucose 216 mg/dL (75-100) H 07/11/21 23:57 Calcium 8.9 mg/dL (8.4-10.2) 07/11/21 23:57 Magnesium 0.90 mg/dL (1.7-2.3) L* 07/11/21 23:57 Total Bilirubin 2.70 mg/dL (0.1-1.2) H 07/11/21 23:57 AST > 700 units/L (5-40) H 07/11/21 23:57 ALT > 700 units/L (7-56) H 07/11/21 23:57 Alkaline Phosphatase 162 units/L (35-129) H 07/11/21 23:57 Ammonia 39.0 umol/L (25-60) 07/12/21 01:23 Total Creatine Kinase 253 units/L (55-170) H 07/11/21 23:57 Total Protein 7.3 g/dL (6.3-8.2) 07/11/21 23:57 Albumin 4.3 g/dL (3.9-5) 07/11/21 23:57 Albumin/Globulin Ratio 1.4 % 07/11/21 23:57 Urine Color [place]andra (Yellow) 07/12/21 01:56 Urine Turbidity Slightly-cloudy (Clear) 07/12/21 01:56 Urine pH 5.0 (5.0-7.0) 07/12/21 01:56 Ur Specific [place] 1.019 (1.003-1.030) 07/12/21 01:56 Urine Protein 100 mg/dl mg/dL (Negative) 07/12/21 01:56 Urine Glucose (UA) 50 mg/dL (Negative) 07/12/21 01:56 Urine Ketones 20 mg/dL (Negative) 07/12/21 01:56 Urine Blood Mod (Negative) 07/12/21 01:56 Urine Nitrite Neg (Negative) 07/12/21 01:56 Urine Bilirubin Neg (Negative) 07/12/21 01:56 Urine Urobilinogen 4.0 mg/dL (<2.0) 07/12/21 01:56 Ur Leukocyte Esterase Neg (Negative) 07/12/21 01:56 Urine WBC (Auto) < 1.0 /HPF (0.0-6.0) 07/12/21 01:56 Urine RBC (Auto) < 1.0 /HPF (0.0-6.0) 07/12/21 01:56 Salicylates < 0.3 mg/dL (2.8-20.0) L 07/11/21 23:57 Urine Opiates Screen Negative 07/12/21 01:56 Urine Methadone Screen Negative 07/12/21 01:56 Acetaminophen 5.0 ug/mL (10.0-30.0) L 07/11/21 23:57 Ur Barbiturates Screen Negative 07/12/21 01:56 Ur Phencyclidine Scrn Negative 07/12/21 01:56 Ur Amphetamines Screen Negative 07/12/21 01:56 U Benzodiazepines Scrn Negative 07/12/21 01:56 Urine Cocaine Screen Negative 07/12/21 01:56 U Marijuana (THC) Screen Presumptive positive 07/12/21 01:56 Drugs of Abuse Note Disclamer 07/12/21 01:56 Plasma/Serum Alcohol < 0.01 % (0-0.07) 07/11/21 23:57 Hepatitis A IgM Ab Non-reactive (NonReactive) 07/11/21 23:57 Hep Bs Antigen Non-reactive (Negative) 07/11/21 23:57 Hep B Core IgM Ab Non-reactive (NonReactive) 07/11/21 23:57 Hepatitis C Antibody Non-reactive (NonReactive) 07/11/21 23:57 - Imaging and Cardiology Chest x-ray: report reviewed CT Scan - head: report reviewed Assessment and Plan VTE prophylaxis?: Mechanical Plan of care discussed with patient/family: Yes - Patient Problems (1) Alcohol withdrawal seizure Current Visit: Yes Status: Acute Plan to address problem: Admit the patient to the [facility]. We will put the patient on CIWA protocol Ativan 1 to 2 mg IV every 4 hours as needed. Thiamine 100 mg IV daily. Folic acid 1 mg p.o. daily. Banana bag 1 bag daily. Will consult GI for evaluation (2) Delirium tremens Current Visit: Yes Status: Acute Plan to address problem: put the patient on CIWA protocol Ativan 1 to 2 mg IV every 4 hours as needed. Thiamine 100 mg IV daily. Folic acid 1 mg p.o. daily. Banana bag 1 bag daily. Will consult GI for evaluation (3) Hypomagnesemia Current Visit: Yes Status: Acute Plan to address problem: Patient is given 2 g of magnesium. Recheck magnesium in the morning (4) Recurrent seizures Current Visit: Yes Status: Acute Plan to address problem: Recurrent seizures secondary to alcohol abuse,put the patient on CIWA protocol Ativan 1 to 2 mg IV every 4 hours as needed. Thiamine 100 mg IV daily. Folic acid 1 mg p.o. daily. Banana bag 1 bag daily. Will consult GI for evaluation (5) Transaminitis Current Visit: Yes Status: Acute Plan to address problem: NPO. D5 half-normal saline at the rate of 1 25 cc/h. Pepcid 20 mg IV every 12 hours. Zofran 4 mg IV every 6 hours as needed. Will consult GI for evaluation. Recheck CMP in the morning (6) Asthma Current Visit: No Status: Acute Plan to address problem: Oxygen by nasal cannula 3 L/min DuoNeb by nebulizer every 4 hours as needed. Albuterol via nebulizer every 4 hours as needed. We continue the home medication (7) DVT prophylaxis Current Visit: Yes Status: Acute Plan to address problem: SCD for DVT prophylaxis. Pepcid 20 mg IV every 12 hours for GI prophylaxis. Patient is a full code
[2021-07-12] MEDS ORDERED: D5W/0.45% NACL 1,000 ML IV SCH (05:00)
--- NOTE | 2021-07-12 07:26 | Event Note ---
Date: 07/12/21 Patient seen and examined remains confused and stuporous likely from the Ativan discussed with nursing staff to hold off on any Ativan Versed the patient wakes up. Agree with replacement of electrolytes will check ammonia level. Continue supportive care at this time await GI evaluation
[2021-07-12] MEDS: FAMOTIDINE 20 MG/2 ML INJ IV SCH (10:35)
[2021-07-12] MEDS: IPRATROPIUM/ALBUTEROL SULFATE 3 ML AMPUL.NEB IH SCH ×2 (10:41→13:58)
--- NOTE | 2021-07-12 10:59 | Gastroenterology Consultation ---
History of Present Illness - Reason for Consult Consult date: 07/12/21 Elevated LFT Requesting physician: BANG DENNEY - History of Present Illness Patient lethargic and confused so history obtained from chart 40-year-old male with history of alcoholism, and alcohol-related withdrawal seizures was brought to the hospital by EMS with an EMS articulated complaint of seizure and alcohol withdrawal. EMS reports normal Accu-Chek in the field. While in the emergency room, the patient had a generalized tonic-clonic seizure which lasted for around 30 seconds. It was terminated with 4 mg of Ativan. In the emergency room patient magnesium is 0.90 ammonia 39.0 plasma alcohol level is 0.01 , also patient AST is greater than 700 and ALT greater than 700, total bilirubin 2.[address] scan of the head shows no acute intracranial abnormality. Chest x-ray showed no acute finding . Patient currently lethargic and not responding to verbal stimuli Unable to obtained/updated/reviewed patient's current medications due to patient's mental status Past History Past Medical History: seizures (Alcohol abuse), other Medications and Allergies Allergies Allergy/AdvReac Type Severity Reaction Status Date / Time No Known Allergies Allergy Verified 07/11/21 23:35 Home Medications Medication Instructions Recorded Confirmed Last Taken Type Lactulose [Cephulac] 20 gm PO QDAY #500 ml 03/07/20 Unknown Rx Magnesium Oxide 400 mg PO QDAY #30 tablet 03/07/20 Unknown Rx Multivitamin with Folic Acid [Cvs 400 mcg PO QDAY #30 tablet 03/07/20 Unknown Rx One Daily Essential Tablet] Potassium Chloride 20 meq PO QDAY #30 packet 03/07/20 Unknown Rx chlordiazePOXIDE [Librium] 25 mg PO Q6H PRN #25 capsule 03/07/20 Unknown Rx levETIRAcetam [Keppra TAB] 500 mg PO BID #60 tablet 05/10/21 Unknown Rx Active Meds: Active Medications Acetaminophen (Acetaminophen 325 Mg Tab) 650 mg PO Q4H PRN PRN Reason: Pain MILD(1-3)/Fever >100.5/BENEDICT Albuterol (Albuterol 2.5 Mg/3 Ml Nebu) 2.5 mg IH Q3HRT PRN PRN Reason: Shortness Of Breath Albuterol/Ipratropium (Ipratropium/Albuterol Sulfate 3 Ml Ampul.Neb) 1 ampul IH Q6HRT [facility] Last Admin: 07/12/21 10:41 Dose: 1 ampul Famotidine (Famotidine 20 Mg/2 Ml Inj) 20 mg IV BID [facility] Last Admin: 07/12/21 10:35 Dose: 20 mg Hydralazine HCl (Hydralazine 20 Mg/1 Ml Inj) 10 mg IV Q6H PRN PRN Reason: Blood Pressure Hydromorphone HCl (Hydromorphone 1 Mg/1 Ml Inj) 0.5 mg IV Q3H PRN PRN Reason: Pain , Severe (7-10) Dextrose/Sodium Chloride (D5/0.45ns) 1,000 mls @ 125 mls/hr IV DIRECT [facility] Thiamine HCl 100 mg/ Folic Acid 1 mg/ Multivitamins/Minerals 10 ml/ Sodium Chloride 1,011.2 mls @ 125 mls/hr IV ONCE ONE Stop: 07/13/21 06:05 Lorazepam (Lorazepam 2 Mg/Ml Vial) 2 mg IV Q1HR PRN PRN Reason: CIWA-Ar 8-15 Last Admin: 07/12/21 05:22 Dose: 2 mg Lorazepam (Lorazepam 2 Mg/Ml Vial) 4 mg IV Q1HR PRN PRN Reason: CIWA-Ar 16-25 Last Admin: 07/12/21 00:00 Dose: 4 mg Lorazepam (Lorazepam 2 Mg/Ml Vial) 4 mg IV Q15MIN PRN PRN Reason: CIWA-Ar >25 Morphine Sulfate (Morphine 2 Mg/1 Ml Inj) 2 mg IV Q4H PRN PRN Reason: Pain, Moderate (4-6) Ondansetron HCl (Ondansetron 4 Mg/2 Ml Inj) 4 mg IV Q8H PRN PRN Reason: Nausea And Vomiting Sodium Chloride (Sodium Chloride 0.9% 10 Ml Flush Syringe) 10 ml IV BID [facility] Last Admin: 07/12/21 10:35 Dose: 10 ml Sodium Chloride (Sodium Chloride 0.9% 10 Ml Flush Syringe) 10 ml IV PRN PRN PRN Reason: LINE FLUSH Review of Systems - Review of Systems ROS unobtainable: due to mental status Exam - Constitutional Vital Signs: Temp Pulse Resp BP Pulse Ox 98.9 F 100 H 18 117/70 97 07/11/21 23:35 07/12/21 10:00 07/12/21 10:00 07/12/21 10:00 07/12/21 10:00 General appearance: other (Lying in bed not responding) - EENT Eyes: other (No severe scleral icterus) ENT: poor dentition - Neck Neck: supple - Respiratory Respiratory effort: normal - Cardiovascular Rhythm: regular - Gastrointestinal General gastrointestinal: Present: soft, normal bowel sounds - Integumentary Integumentary: Present: dry - Musculoskeletal Musculoskeletal: normal - Neurologic Neurological: disoriented - Psychiatric Psychiatric: other (Unable to assess) - Labs CBC & Chem 7: 07/11/21 23:57 07/11/21 23:57 Lab Results: Laboratory Results - last 24 hr 07/11/21 07/11/21 07/11/21 23:57 23:57 23:57 WBC 8.3 RBC 4.40 Hgb 13.4 Hct 40.0 MCV 91 MCH 30 MCHC 33 RDW 15.9 H Plt Count 258 Lymph % (Auto) 35.7 H [place] % (Auto) 8.8 H Eos % (Auto) 1.0 Baso % (Auto) 1.1 Lymph # (Auto) 3.0 [place] # (Auto) 0.7 Eos # (Auto) 0.1 Baso # (Auto) 0.1 Seg Neutrophils % 53.4 Seg Neutrophils # 4.4 PT INR APTT Sodium 135 L Potassium 3.5 L Chloride 89.5 L Carbon Dioxide 24 Anion Gap 25 BUN 10 Creatinine 1.0 Estimated GFR > 60 BUN/Creatinine Ratio 10 Glucose 216 H Calcium 8.9 Magnesium Total Bilirubin 2.70 H AST > 700 H ALT > 700 H Alkaline Phosphatase 162 H Ammonia Total Creatine Kinase Total Protein 7.3 Albumin 4.3 Albumin/Globulin Ratio 1.4 Urine Color Urine Turbidity Urine pH Ur Specific [place] Urine Protein Urine Glucose (UA) Urine Ketones Urine Blood Urine Nitrite Urine Bilirubin Urine Urobilinogen Ur Leukocyte Esterase Urine WBC (Auto) Urine RBC (Auto) Salicylates < 0.3 L Urine Opiates Screen Urine Methadone Screen Acetaminophen Ur Barbiturates Screen Ur Phencyclidine Scrn Ur Amphetamines Screen U Benzodiazepines Scrn Urine Cocaine Screen U Marijuana (THC) Screen Drugs of Abuse Note Plasma/Serum Alcohol Hepatitis A IgM Ab Hep Bs Antigen Hep B Core IgM Ab Hepatitis C Antibody 07/11/21 07/11/21 07/11/21 23:57 23:57 23:57 WBC RBC Hgb Hct MCV MCH MCHC RDW Plt Count Lymph % (Auto) [place] % (Auto) Eos % (Auto) Baso % (Auto) Lymph # (Auto) [place] # (Auto) Eos # (Auto) Baso # (Auto) Seg Neutrophils % Seg Neutrophils # PT 25.3 H INR 2.09 H APTT Sodium Potassium Chloride Carbon Dioxide Anion Gap BUN Creatinine Estimated GFR BUN/Creatinine Ratio Glucose Calcium Magnesium Total Bilirubin AST ALT Alkaline Phosphatase Ammonia Total Creatine Kinase Total Protein Albumin Albumin/Globulin Ratio Urine Color Urine Turbidity Urine pH Ur Specific [place] Urine Protein Urine Glucose (UA) Urine Ketones Urine Blood Urine Nitrite Urine Bilirubin Urine Urobilinogen Ur Leukocyte Esterase Urine WBC (Auto) Urine RBC (Auto) Salicylates Urine Opiates Screen Urine Methadone Screen Acetaminophen 5.0 L Ur Barbiturates Screen Ur Phencyclidine Scrn Ur Amphetamines Screen U Benzodiazepines Scrn Urine Cocaine Screen U Marijuana (THC) Screen Drugs of Abuse Note Plasma/Serum Alcohol < 0.01 Hepatitis A IgM Ab Hep Bs Antigen Hep B Core IgM Ab Hepatitis C Antibody 07/11/21 07/11/21 07/11/21 23:57 23:57 23:57 WBC RBC Hgb Hct MCV MCH MCHC RDW Plt Count Lymph % (Auto) [place] % (Auto) Eos % (Auto) Baso % (Auto) Lymph # (Auto) [place] # (Auto) Eos # (Auto) Baso # (Auto) Seg Neutrophils % Seg Neutrophils # PT INR APTT 26.5 Sodium Potassium Chloride Carbon Dioxide Anion Gap BUN Creatinine Estimated GFR BUN/Creatinine Ratio Glucose Calcium Magnesium 0.90 L* Total Bilirubin AST ALT Alkaline Phosphatase Ammonia Total Creatine Kinase 253 H Total Protein Albumin Albumin/Globulin Ratio Urine Color Urine Turbidity Urine pH Ur Specific [place] Urine Protein Urine Glucose (UA) Urine Ketones Urine Blood Urine Nitrite Urine Bilirubin Urine Urobilinogen Ur Leukocyte Esterase Urine WBC (Auto) Urine RBC (Auto) Salicylates Urine Opiates Screen Urine Methadone Screen Acetaminophen Ur Barbiturates Screen Ur Phencyclidine Scrn Ur Amphetamines Screen U Benzodiazepines Scrn Urine Cocaine Screen U Marijuana (THC) Screen Drugs of Abuse Note Plasma/Serum Alcohol Hepatitis A IgM Ab Non-reactive Hep Bs Antigen Non-reactive Hep B Core IgM Ab Non-reactive Hepatitis C Antibody Non-reactive 07/12/21 07/12/21 07/12/21 01:23 01:56 01:56 WBC RBC Hgb Hct MCV MCH MCHC RDW Plt Count Lymph % (Auto) [place] % (Auto) Eos % (Auto) Baso % (Auto) Lymph # (Auto) [place] # (Auto) Eos # (Auto) Baso # (Auto) Seg Neutrophils % Seg Neutrophils # PT INR APTT Sodium Potassium Chloride Carbon Dioxide Anion Gap BUN Creatinine Estimated GFR BUN/Creatinine Ratio Glucose Calcium Magnesium Total Bilirubin AST ALT Alkaline Phosphatase Ammonia 39.0 Total Creatine Kinase Total Protein Albumin Albumin/Globulin Ratio Urine Color Cassandra Urine Turbidity Slightly-cloudy Urine pH 5.0 Ur Specific [place] 1.019 Urine Protein 100 mg/dl Urine Glucose (UA) 50 Urine Ketones 20 Urine Blood Mod Urine Nitrite Neg Urine Bilirubin Neg Urine Urobilinogen 4.0 Ur Leukocyte Esterase Neg Urine WBC (Auto) < 1.0 Urine RBC (Auto) < 1.0 Salicylates Urine Opiates Screen Negative Urine Methadone Screen Negative Acetaminophen Ur Barbiturates Screen Negative Ur Phencyclidine Scrn Negative Ur Amphetamines Screen Negative U Benzodiazepines Scrn Negative Urine Cocaine Screen Negative U Marijuana (THC) Screen Presumptive positive Drugs of Abuse Note Disclamer Plasma/Serum Alcohol Hepatitis A IgM Ab Hep Bs Antigen Hep B Core IgM Ab Hepatitis C Antibody 07/12/21 09:22 WBC RBC Hgb Hct MCV MCH MCHC RDW Plt Count Lymph % (Auto) [place] % (Auto) Eos % (Auto) Baso % (Auto) Lymph # (Auto) [place] # (Auto) Eos # (Auto) Baso # (Auto) Seg Neutrophils % Seg Neutrophils # PT INR APTT Sodium Potassium Chloride Carbon Dioxide Anion Gap BUN Creatinine Estimated GFR BUN/Creatinine Ratio Glucose Calcium Magnesium 2.20 Total Bilirubin AST ALT Alkaline Phosphatase Ammonia Total Creatine Kinase Total Protein Albumin Albumin/Globulin Ratio Urine Color Urine Turbidity Urine pH Ur Specific [place] Urine Protein Urine Glucose (UA) Urine Ketones Urine Blood Urine Nitrite Urine Bilirubin Urine Urobilinogen Ur Leukocyte Esterase Urine WBC (Auto) Urine RBC (Auto) Salicylates Urine Opiates Screen Urine Methadone Screen Acetaminophen Ur Barbiturates Screen Ur Phencyclidine Scrn Ur Amphetamines Screen U Benzodiazepines Scrn Urine Cocaine Screen U Marijuana (THC) Screen Drugs of Abuse Note Plasma/Serum Alcohol Hepatitis A IgM Ab Hep Bs Antigen Hep B Core IgM Ab Hepatitis C Antibody Assessment and Plan Given presentation suspect rapid rise and liver enzymes due to shock liver and recommend continue supportive care Tylenol level negative Acute hepatitis panel negative Patient with known history of alcohol abuse and recurrent seizures, not a transplant candidate Therefore recommend continue supportive care, trend LFTs daily trend INR daily we will continue to monitor closely with you - Patient Problems (1) Acute encephalopathy Current Visit: Yes Status: Acute (2) Alcohol withdrawal seizure Current Visit: Yes Status: Acute (3) Coagulation test abnormality Current Visit: Yes Status: Acute (4) Transaminitis Current Visit: Yes Status: Acute
[2021-07-12] MEDS ORDERED: THIAMINE 100 MG, FOLIC ACID 1 MG, MULTIPLE VITAMIN INJ, ADULT 10 ML in SODIUM CHLORIDE ... IV ONE (22:00)
[2021-07-13] MEDS: FAMOTIDINE 20 MG/2 ML INJ IV SCH ×2 (02:46→10:24)
[2021-07-13 05:58] LABS: Basophils # (Auto) 0.1 K/mm3 (0.0-0.1); Basophils % (Auto) 2.2 % (0.0-1.8); Eosinophils % (Auto) 0.7 % (0.0-4.3); Hematocrit 37.3 % (35.5-45.6); Hemoglobin 12.2 gm/dl (11.8-15.2); Lymphocytes # (Auto) 1.5 K/mm3 (1.2-5.4); Lymphocytes % (Auto) 22.8 % (13.4-35.0); Mean Corpuscular HGB Conc 33 % (32-34); Mean Corpuscular Volume 92 fl (84-94); Monocytes # (Auto) 0.5 K/mm3 (0.0-0.8); Monocytes % (Auto) 6.9 % (0.0-7.3); Platelet Count 157 K/mm3 (140-440); Red Blood Count 4.05 M/mm3 (3.65-5.03); Red Cell Distribution Width 16.3 % (13.2-15.2)
[2021-07-13 06:12] LABS: Alanine Aminotransferase 572 units/L (7-56); Albumin 3.9 g/dL (3.9-5); BUN/Creatinine Ratio 6; Blood Urea Nitrogen 5 mg/dL (9-20); Calcium 8.7 mg/dL (8.4-10.2); Hemolysis Index 2
[2021-07-13] MEDS: IPRATROPIUM/ALBUTEROL SULFATE 3 ML AMPUL.NEB IH SCH (07:34)
--- NOTE | 2021-07-13 08:41 | Gastroenterology Progress Note ---
Assessment and Plan Given presentation suspect rapid rise and liver enzymes due to shock liver and suspect will have relatively rapid decline in the transaminases over the next few days Mental status normal so I ordered patient for diet Tylenol level negative Acute hepatitis panel negative Patient with known history of alcohol abuse and recurrent seizures, not a transplant candidate Therefore recommend continue supportive care, trend LFTs daily trend INR daily (I put in an order for INR tomorrow, I also ordered vitamin K) we will continue to monitor closely with you - Patient Problems (1) Acute encephalopathy Current Visit: Yes Status: Acute (2) Alcohol withdrawal seizure Current Visit: Yes Status: Acute (3) Coagulation test abnormality Current Visit: Yes Status: Acute (4) Transaminitis Current Visit: Yes Status: Acute Subjective Date of service: 07/13/21 Principal diagnosis: Elevated liver enzymes Interval history: Patient mental status much better today Reports no abdominal pain Reports last drink of alcohol 1 week ago Objective - Constitutional Vitals: Temp Pulse Resp BP Pulse Ox 98.9 F 98 H 18 116/69 95 07/11/21 23:35 07/12/21 17:00 07/12/21 17:00 07/12/21 17:00 07/12/21 17:00 General appearance: no acute distress - EENT Eyes: EOM intact ENT: hearing intact - Neck Neck: supple - Respiratory Respiratory effort: normal - Cardiovascular Rhythm: regular - Gastrointestinal General gastrointestinal: Present: soft, non-tender - Integumentary Integumentary: Present: dry - Neurologic Neurological: alert and oriented x3 - Psychiatric Psychiatric: appropriate mood/affect - Labs CBC & Chem 7: 07/13/21 04:51 07/13/21 04:51 Labs: Laboratory Results - last 24 hr 07/12/21 07/13/21 07/13/21 09:22 04:51 04:51 WBC 6.6 RBC 4.05 Hgb 12.2 Hct 37.3 MCV 92 MCH 30 MCHC 33 RDW 16.3 H Plt Count 157 Lymph % (Auto) 22.8 [place] % (Auto) 6.9 Eos % (Auto) 0.7 Baso % (Auto) 2.2 H Lymph # (Auto) 1.5 [place] # (Auto) 0.5 Eos # (Auto) 0.0 Baso # (Auto) 0.1 Seg Neutrophils % 67.4 Seg Neutrophils # 4.4 Sodium 138 Potassium 3.0 L Chloride 97.9 L Carbon Dioxide 26 Anion Gap 17 BUN 5 L Creatinine 0.9 Estimated GFR > 60 BUN/Creatinine Ratio 6 Glucose 150 H Calcium 8.7 Magnesium 2.20 Total Bilirubin 2.30 H AST 707 H ALT 572 H Alkaline Phosphatase 142 H Total Protein 6.7 Albumin 3.9 Albumin/Globulin Ratio 1.4
[2021-07-13] MEDS ORDERED: POTASSIUM CHLORIDE ER 20 MEQ TAB PO SCH (09:00)
[2021-07-13 09:24] VITALS: BP 137/81
[2021-07-13] MEDS ORDERED: PHYTONADIONE 5 MG/0.5 ML *ORAL LIQUID PO SCH (10:00)
--- NOTE | 2021-07-13 10:35 | Discharge Summary ---
Providers - Providers Date of Admission: 07/12/21 04:15 Attending physician: EDY SANTILLAN MD 07/12/21 01:11 Consult to Physician [CONS] Urgent Comment: Consulting Provider: DAYA PETERSON Physician Instructions: Reason For Exam: transaminits, etoh abuse Primary care physician: [facility] Hospitalization Condition: Serious Disposition: 07 LEFT AGAINST MEDICAL ADVICE Exam - Constitutional Vitals: Temp Pulse Resp BP Pulse Ox 98.0 F 85 18 137/81 95 07/13/21 08:54 07/13/21 08:54 07/13/21 08:54 07/13/21 08:54 07/13/21 08:54 Plan Follow up with: PRIMARY CAREMD [Primary Care Provider] - 3-5 Days Forms: AMA Form
--- NOTE | 2021-07-14 10:07 | Electrocardiograph Report ---
[facility] Test Date: 2021-07-12 Test Time: 05:01:20 Pat Name: HENOK NEWBY Department: Room: A471 Gender: M Machine Tech: : [id number] Requested By: BANG DENNEY Order Number: [id number] Reading MD: Kortney Cabrera Measurements Intervals [place] Rate: 104 P: 78 MD: 133 QRS: 59 QRSD: 92 T: 39 QT: 303 QTc: 399 Interpretive Statements Sinus tachycardia Consider left ventricular hypertrophy Compared to ECG 12/08/2020 13:39:24 No significant change Electronically Signed On 07-14-2021 10:07:33 EST by Kortney Cabrera
== END 2021-07-13 10:25 | disposition left against medical advice (07) | DRG 101 ==
LOC: ED 23:27 → 3A 07-12 04:15 → 4A 07-12 23:44
PROVIDERS: ADMIT Hospitalist; ATTEND Student in an Organized Health Care Education/Training Program
DX: G40.909 Epilepsy, unspecified, not intractable, without status epilepticus (principal); F10.231 Alcohol dependence with withdrawal delirium; G93.40 Encephalopathy, unspecified; E83.42 Hypomagnesemia; J45.909 Unspecified asthma, uncomplicated; Z20.822 Contact with and (suspected) exposure to COVID-19
CPT/HCPCS: 36415; 70450; 71045; 72125; 76705; 80053; 80074; 80307; 80320; 81001; 82140; 82550; 83735; 85025; 85610; 85730; 93005; 93010; G0378; J3490; Q0162; G0480; J1630; J1953; J2060; J3360; J3411; J3475; J7030; J7120

== ENCOUNTER 2021-07-31 12:07 | Emergency (ER) | payer SELFPAY ==
[2021-07-31] MEDS ORDERED: SODIUM CHLORIDE 0.45% 1000 ML 1,000 ML IV ONE (12:43)
[2021-07-31] MEDS ORDERED: THIAMINE 100 MG, FOLIC ACID 1 MG, MULTIPLE VITAMIN INJ, ADULT 10 ML in SODIUM CHLORIDE ... IV ONE (13:13)
[2021-07-31 13:37] LABS: Basophils # (Auto) 0.1 K/mm3 (0.0-0.1); Eosinophils % (Auto) 0.4 % (0.0-4.3); Hematocrit 43.1 % (35.5-45.6); Hemoglobin 14.2 gm/dl (11.8-15.2); Lymphocytes # (Auto) 2.1 K/mm3 (1.2-5.4); Lymphocytes % (Auto) 34.9 % (13.4-35.0); Mean Corpuscular HGB Conc 33 % (32-34); Mean Corpuscular Volume 94 fl (84-94); Monocytes # (Auto) 0.4 K/mm3 (0.0-0.8); Monocytes % (Auto) 6.9 % (0.0-7.3); Platelet Count 317 K/mm3 (140-440); Red Blood Count 4.58 M/mm3 (3.65-5.03); Red Cell Distribution Width 15.9 % (13.2-15.2)
[2021-07-31] MEDS ORDERED: levETIRAcetam 1000 MG/NS 0.75% 1,000 MG/100 ML BAG IV ONE (13:53)
[2021-07-31] MEDS ORDERED: levETIRAcetam 500 MG in DEXTROSE 5% IN WATER 100 ML IV ONE (13:53)
--- NOTE | 2021-07-31 13:58 | Emergency Department Report ---
HPI - General Chief Complaint: Alcohol Time Seen by Provider: 07/31/21 13:00 - HPI HPI: 40-year-old male with history of alcohol use disorder with history of severe withdrawal as well as history of separate seizure disorder on Keppra brought in by EMS with chief complaint history of seizures. According to the EMS report, the patient reported he has a history of seizures but denied seizures today. He also reported being drunk. His fingerstick blood glucose was 62. Family was with him at the time that EMS arrived. The patient appears intoxicated and admits to drinking 1 pint of liquor today. He also says that he had multiple seizures earlier today. He is unable to explain how he knows that he had multiple seizures however. His speech is incoherent and irrational/illogical. Further details of the HPI are highly limited due to the patient's current clinical condition. ED Past Medical Hx - Past Medical History Previous Medical History?: Yes Hx Seizures: Yes Hx Asthma: Yes Additional medical history: Alcohol use disorder - Surgical History Additional Surgical History: right leg pain with alyson - Social History Smoking Status: Current Every Day Smoker Substance Use Type: Alcohol, Marijuana - Medications Home Medications: Home Medications Medication Instructions Recorded Confirmed Last Taken Type Magnesium Oxide 400 mg PO QDAY #30 tablet 03/07/20 07/13/21 1 Week Ago Rx ~07/06/21 Potassium Chloride 20 meq PO QDAY #30 packet 03/07/20 07/13/21 07/12/21 Rx levETIRAcetam [Keppra TAB] 500 mg PO BID #60 tablet 05/10/21 07/13/21 07/12/21 Rx ED Review of Systems ROS: Stated complaint: SZ/ETOH Other details as noted in HPI Comment: Unobtainable due to pts medical conditions Physical Exam - Physical Exam Vital Signs: Vital Signs 07/31/21 07/31/21 12:16 13:16 Temperature 98.9 F 98.0 F Pulse Rate 82 88 Respiratory 18 18 Rate Blood Pressure 150/102 125/61 [Left] O2 Sat by Pulse 99 100 Oximetry Physical Exam: GENERAL: Middle-aged male who appears intoxicated with somnolence but is easily arousable to loud voice. Disheveled. Smells of alcohol HEAD: Normocephalic. No obvious signs of trauma. ENT: Dry mucous membranes. EYES: Extraocular movements are intact. Pupils are equal round and reactive to light bilaterally NECK: Supple. Full ROM is intact. Trachea is midline. LUNGS: Nonlabored breathing. Equal chest rise bilaterally. Clear to auscultation bilaterally. CARDIOVASCULAR: Regular rate and rhythm. No murmurs or rubs. VASCULAR: Cap refill < 2 seconds ABDOMEN: Abdomen is soft and nondistended. There is no significant tenderness, guarding or rebound. SKIN: Skin is warm and dry NEURO: Patient is awake, slightly somnolent but easily arousable and oriented only to self. Speaking with slurred speech and with inconsistent answers to questions. Some of his speech is incoherent. He does not follow all commands to perform full neurologic exam although he has no facial asymmetry and has no focal neurologic deficits. He is moving all 4 extremities with normal strength. Steady gait MUSCULOSKELETAL: No obvious deformities. No significant tenderness. Normal ROM throughout. BACK/SPINE: No midline tenderness or step-offs of the C/T/L spine. No costovertebral angle tenderness. ED Course Vital Signs 07/31/21 07/31/21 12:16 13:16 Temperature 98.9 F 98.0 F Pulse Rate 82 88 Respiratory 18 18 Rate Blood Pressure 150/102 125/61 [Left] O2 Sat by Pulse 99 100 Oximetry ED Medical Decision Making - Lab Data Result diagrams: 07/31/21 13:18 07/31/21 13:18 - Radiology Data Radiology results: report reviewed - Medical Decision Making 40-year-old male with history of alcohol use disorder and seizure disorder on Keppra brought in by EMS at the direction of the patient's family. According to the EMS report, the patient reported he has a history of seizures but denied seizures today. He also reported being drunk. His fingerstick blood glucose was 62. The patient reports to me that he drank 1 pint of liquor today. He says he had multiple seizures earlier but is unable to explain how he knows he had multiple seizures. He does say he takes Keppra and has not missed any doses. On initial assessment he is afebrile and with normal vital signs other than mildly elevated blood pressure. On physical examination he appears intoxicated, smells of alcohol, and has slurred/incoherent speech. No obvious signs of trauma. Not following all commands but with no focal neurologic deficits. We will perform broad work-up with a full set of labs including fingerstick blood glucose to be obtained now. We will also perform CT of the head to assess for evidence of intracranial bleeding versus edema versus other abnormality to explain the patient's presentation given that he has intoxication which is possibly distracting. We will give 1 L banana bag and 1500 mg of Keppra given that he reports having seizures. Nurse Joseph was asked again to perform fingerstick blood glucose. Labs reveal no significant leukocytosis or anemia. Kidney function is normal. Potassium is 5.0. Bicarb is 17 and there is an anion gap of 32 glucose on the chemistry panel is 58. Alcohol level is elevated at 0.32. Findings could be co nsistent with alcoholic ketoacidosis. I immediately ordered 100 mL of D10 to be infused. CT of the head shows no acute abnormalities but the finding of old left posterior stroke which is unchanged. At 1501, nurse Joseph obtain fingerstick blood glucose which was 59. For some reason he did not give the D10 as ordered. I have now ordered a D10 drip to be infused continuously. At 1542, fingerstick blood glucose is 64. When I went to reassess the patient, he was not in the room. I asked the nurse from where the patient was and he told me that the patient left AGAINST MEDICAL ADVICE. I told him that the patient is intoxicated with hypoglycemia and cannot make decisions for himself nor can he leave AGAINST MEDICAL ADVICE. We were able to find the patient before he left the hospital and bring him back to his room. The patient walks with steady gait but is speaking incoherently. I expl ained to him the need for further treatment given his low blood sugar. The patient did not seem to understand explanation. I asked nurse Ruiz to immediately give the patient 20 mg of Geodon for medical restraint so that he does not leave and we can manage his hypoglycemia But I followed up to see whether the patient is appropriately sedated from Geodon, nurse Ruiz told me that the patient eloped. I asked him to call police immediately which he says he will do. Charge nurse informed as well Critical Care Time: Yes Critical care time in (mins) excluding proc time.: 35 Critical care attestation.: If time is entered above; I have spent that time in minutes in the direct care of this critically ill patient, excluding procedure time. Critical care time was spent in the evaluation/assessment, work-up, and management of alcohol intoxication with hyperglycemia and likely alcoholic ketoacidosis requiring infusion of D10, Keppra, and Endobag, repeat assessment. ED Disposition Clinical Impression: Alcohol intoxication, Hypoglycemia, Alcoholic ketoacidosis Disposition: 07 LEFT AWOL/ELOPED Is pt being admited?: No Condition: Serious Referrals: PRIMARY CARE, [Primary Care Provider] - 3-5 Days
[2021-07-31 14:04] LABS: BUN/Creatinine Ratio 11; Blood Urea Nitrogen 11 mg/dL (9-20); Calcium 9.6 mg/dL (8.4-10.2); Hemolysis Index 105
--- NOTE | 2021-07-31 14:30 | Cat Scan Report ---
CT HEAD WITHOUT CONTRAST INDICATION / CLINICAL INFORMATION: intox, poss fall, history of seizures. TECHNIQUE: All CT scans at this location are performed using CT dose reduction for ALARA by means of automated e xposure control. COMPARISON: Head CT 07/12/2021 FINDINGS: HEMORRHAGE: None. EXTRA-AXIAL SPACES: Normal in size and morphology for the patient's age. VENTRICULAR SYSTEM: Normal in size and morphology for the patient's age. 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 No significan t abnormality. No acute territorial infarct. MIDLINE SHIFT OR HERNIATION: None. CEREBELLUM / BRAINSTEM: No significant abnormality. ORBITS: Normal as visualized. SOFT TISSUES of HEAD: No significant abnormality. CALVARIUM: No significant abnormality. PARANASAL SINUSES / MASTOID AIR CELLS: Normal as visualized. ADDITIONAL FINDINGS: None. IMPRESSION: 1. No acute intracranial abnormality. 2. 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 Signer Name: Yovanny López MD Signed: 07/31/2021 2:25 PM Workstation Name: [id number]
[2021-07-31] MEDS ORDERED: SODIUM CHLORIDE 0.9% 1000 ML 1,000 ML IV ONE (14:57)
[2021-07-31] MEDS ORDERED: D10W 250 ML IV SOLN IV ONE (15:00)
[2021-07-31] MEDS ORDERED: ZIPRASIDONE MESYLATE 20 MG VIAL IM ONE (15:45)
[2021-07-31] MEDS ORDERED: DEXTROSE 10% IN WATER 1,000 ML IV SCH (16:00)
[2021-07-31 16:17] VITALS: BP 139/73
== END 2021-07-31 20:42 | disposition left against medical advice (07) ==
LOC: ED 12:07
DX: F10.129 Alcohol abuse with intoxication, unspecified (principal); E16.2 Hypoglycemia, unspecified; F17.200 Nicotine dependence, unspecified, uncomplicated; J45.909 Unspecified asthma, uncomplicated; F12.90 Cannabis use, unspecified, uncomplicated
CPT/HCPCS: 36415; 70450; 80048; 82140; 82962; 83690; 83735; 85025; 96365; 96366; 96368; 99284; J1953; J3411; J3486; J3490; J7030; J7060; 80320; Q0162; G0480

== ENCOUNTER 2021-08-09 10:10 | Emergency (ER) | payer SELFPAY ==
[2021-08-09 10:16] VITALS: BP 140/103
--- NOTE | 2021-08-09 10:26 | Emergency Department Report ---
ED Recheck HPI - General Chief Complaint: Medical Clearance Stated Complaint: MEDS REFILL Time Seen by Provider: 08/09/21 10:23 Source: patient Mode of arrival: Ambulatory Limitations: No Limitations - History of Present Illness Initial Comments: 40 yo comes to ER for keppra refill. Known to us- has been here in recent past. Ran out of meds this weekend. Educated on appropriate use of PCP for his refills denies sz denies any physical ailment on exam MD Complaint: medication refill request - Related Data Previous Rx's Medication Instructions Recorded Last Taken Type Magnesium Oxide 400 mg PO QDAY #30 tablet 03/07/20 1 Week Ago Rx ~07/06/21 Potassium Chloride 20 meq PO QDAY #30 packet 03/07/20 07/12/21 Rx levETIRAcetam [Keppra TAB] 500 mg PO BID #60 tablet 08/09/21 Unknown Rx Allergies Allergy/AdvReac Type Severity Reaction Status Date / Time No Known Allergies Allergy Verified 07/31/21 12:55 ED Review of Systems ROS: Stated complaint: MEDS REFILL Other details as noted in HPI Comment: All other systems reviewed and negative ED Past Medical Hx - Past Medical History Previous Medical History?: Yes Hx Seizures: Yes Hx Asthma: Yes Additional medical history: Alcohol use disorder - Surgical History Past Surgical History?: Yes Additional Surgical History: right leg pain with alyson - Social History Smoking Status: Current Every Day Smoker Substance Use Type: Alcohol, Marijuana - Medications Home Medications: Home Medications Medication Instructions Recorded Confirmed Last Taken Type Magnesium Oxide 400 mg PO QDAY #30 tablet 03/07/20 07/13/21 1 Week Ago Rx ~07/06/21 Potassium Chloride 20 meq PO QDAY #30 packet 03/07/20 07/13/21 07/12/21 Rx levETIRAcetam [Keppra TAB] 500 mg PO BID #60 tablet 08/09/21 Unknown Rx ED Physical Exam - General Limitations: No Limitations General appearance: alert, in no apparent distress - Head Head exam: Present: atraumatic, normocephalic - Eye Eye exam: Present: normal appearance - ENT ENT exam: Present: mucous membranes moist - Neck Neck exam: Present: normal inspection - Respiratory Respiratory exam: Present: normal lung sounds bilaterally. Absent: respiratory distress - Cardiovascular Cardiovascular Exam: Present: regular rate, normal rhythm. Absent: systolic murmur, diastolic murmur, rubs, gallop - GI/Abdominal GI/Abdominal exam: Present: soft, normal bowel sounds - Rectal Rectal exam: Present: deferred - Extremities Exam Extremities exam: Present: normal inspection - Back Exam Back exam: Present: normal inspection - Neurological Exam Neurological exam: Present: alert, oriented X3 - Psychiatric Psychiatric exam: Present: normal affect, normal mood - Skin Skin exam: Present: warm, dry, intact, normal color. Absent: rash ED Course Vital Signs 08/09/21 10:14 Temperature 99.3 F Pulse Rate 86 Respiratory 18 Rate Blood Pressure 140/103 O2 Sat by Pulse 99 Oximetry ED Recheck MDM - Core Measures Measure Exclusions: not indicated - Differential Diagnosis Prescription Refill(s) - Medical Decision Making 30 day supply keppra given to pt dc home with pcp referral. Pt verbalizes understanding of plan of care. Vital Signs (72 hours) 08/09/21 10:14 Temperature 99.3 F Pulse Rate 86 Respiratory 18 Rate Blood Pressure 140/103 O2 Sat by Pulse 99 Oximetry Critical care attestation.: If time is entered above; I have spent that time in minutes in the direct care of this critically ill patient, excluding procedure time. ED Disposition Clinical Impression: Medicine refill Disposition: 01 HOME / SELF CARE / HOMELESS Is pt being admited?: No Does the pt Need Aspirin: No Condition: Stable Additional Instructions: SEE MD BELOW FOR FUTURE MED REFILLS Prescriptions: levETIRAcetam [Keppra TAB] 500 mg PO BID #60 tablet Referrals: FREDDY VAUGHN MD [Staff Physician] - 3-5 Days Time of Disposition: 10:25
== END 2021-08-09 10:43 | disposition home or self-care (01) ==
LOC: ED 10:10
DX: G40.909 Epilepsy, unspecified, not intractable, without status epilepticus (principal); Z76.0 Encounter for issue of repeat prescription; F17.200 Nicotine dependence, unspecified, uncomplicated; F10.20 Alcohol dependence, uncomplicated; J45.909 Unspecified asthma, uncomplicated
CPT/HCPCS: 99282